=== PATIENT | female | born 1975 | race Caucasian/White ===

== ENCOUNTER → 2017-02-15 | Outpatient (CLI) | payer OTHER | END | disposition home or self-care (01) | LOC: MW.CHFP 14:06 | PROVIDERS: ATTEND Student in an Organized Health Care Education/Training Program | DX: D64.9 Anemia, unspecified (principal) | CPT/HCPCS: 36415; 85027 ==

== ENCOUNTER 2020-03-31 12:01 | Observation (INO) | payer OTHER ==
[2020-03-31] MEDS ORDERED: Ketorolac 30 MG/ML SDV IVPUSH ONE (12:06)
[2020-03-31] MEDS ORDERED: Ondansetron 4 MG/2 ML SDV IVPUSH ONE (12:09)
--- NOTE | 2020-03-31 12:12 | EDM.PDOC ---
ED HPI GENERAL MEDICAL PROBLEM - General Chief Complaint: Abdominal Pain Stated Complaint: PAIN ON SIDE Time Seen by Provider: 03/31/20 12:05 Source of Information: Reports: Patient History Limitations: Reports: No Limitations - History of Present Illness INITIAL COMMENTS - FREE TEXT/NARRATIVE: 45-year-old female presents with right upper quadrant abdominal pain nausea for the last 2 hours. She has no gallbladder present patient has no uterus present Duration: Hour(s): Location: Reports: Abdomen Quality: Reports: Ache Severity: Moderate Improves with: Reports: None Worsens with: Reports: None Associated Symptoms: Reports: No Other Symptoms RUQ Pain Score (Numeric/FACES): 10 - Related Data Allergies Allergy/AdvReac Type Severity Reaction Status Date / Time No Known Allergies Allergy Verified 03/31/20 12:02 Home Meds: Home Meds . 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: Reports: Dysfunctional Uterine Bleeding Musculoskeletal History: Reports: Arthritis Neurological History: Reports: None Psychiatric History: Reports: None Endocrine/Metabolic History: Reports: None Other Endocrine/Metabolic History: states has questionable hyperactive thyroid, states is going to be retested Hematologic History: Reports: None Immunologic History: Reports: None Oncologic (Cancer) History: Reports: None Dermatologic History: Reports: None - Infectious Disease History Infectious Disease History: Reports: Chicken Pox - Past Surgical History Head Surgeries/Procedures: Reports: None HEENT Surgical History: Reports: None Cardiovascular Surgical History: Reports: None Respiratory Surgical History: Reports: None Female Surgical History: Reports: Hysterectomy, Tubal Ligation Endocrine Surgical History: Reports: None Neurological Surgical History: Reports: None Musculoskeletal Surgical History: Reports: None Oncologic Surgical History: Reports: None Dermatological Surgical History: Reports: None Social & Family History - Family History Family Medical History: Noncontributory - Tobacco Use Smoking Status *Q: Former Smoker Used Tobacco, but Quit: Yes Month/Year Tobacco Last Used: 2013 - Caffeine Use Caffeine Use: Reports: Tea - Recreational Drug Use Recreational Drug Use: No ED ROS GENERAL - Review of Systems Review Of Systems: See Below Constitutional: Reports: No Symptoms HEENT: Reports: No Symptoms Respiratory: Reports: No Symptoms Cardiovascular: Reports: No Symptoms Endocrine: Reports: No Symptoms GI/Abdominal: Reports: Abdominal Pain : Reports: No Symptoms Musculoskeletal: Reports: No Symptoms Skin: Reports: No Symptoms Neurological: Reports: No Symptoms Psychiatric: Reports: No Symptoms Hematologic/Lymphatic: Reports: No Symptoms Immunologic: Reports: No Symptoms ED EXAM, GI/ABD - Physical Exam Exam: See Below Exam Limited By: No Limitations General Appearance: Alert, WD/WN, Moderate Distress Eyes: Bilateral: Normal Appearance Ears: Normal External Exam, Normal Canal, Hearing Grossly Normal, Normal TMs Nose: Normal Inspection, Normal Mucosa, No Blood Throat/Mouth: Normal Inspection, Normal Lips, Normal Teeth, Normal Gums, Normal Oropharynx, Normal Voice, No Airway Compromise Head: Atraumatic, Normocephalic Neck: Normal Inspection, Supple, Non-Tender Respiratory/Chest: No Respiratory Distress, Lungs Clear, Normal Breath Sounds, No Accessory Muscle Use, Chest Non-Tender Cardiovascular: Normal Peripheral Pulses, Regular Rate, Rhythm, No Edema, No JVD , No Murmur GI/Abdominal Exam: Normal Bowel Sounds, Soft, No Organomegaly, No Distention, No Abnormal Bruit, No Mass, Pelvis Stable Rectal (Female) Exam: Normal Exam, Normal Rectal Tone Back Exam: Normal Inspection, Full Range of Motion Extremities: Normal Inspection, Normal Range of Motion, No Pedal Edema, Normal Capillary Refill Neurological: Alert, Oriented, CN II-XII Intact, Normal Cognition, Normal Reflexes, No Motor/Sensory Deficits Psychiatric: Normal Affect, Normal Mood Skin Exam: Warm, Dry, Intact, Normal Color, No Rash Lymphatic: No Adenopathy Course - Vital Signs Text/Narrative:: Is a 45-year-old female who presents with severe abdominal pain. Patient is labs suggested patient has pancreatitis with high pace of 11,000. Patient CT scan shows enteritis picture. Patient's pain has not improved from a 10 down to a 3-4. I have discussed case with hospitalist traffic personnel supervisor and patient will be admitted to observation with telemetry. Received additional pain medicine and IV fluids in the emergency room Last Recorded V/S: Last Vital Signs Temp 96.1 F L 03/31/20 12:02 Pulse 74 03/31/20 13:49 Resp 18 03/31/20 13:49 BP 118/71 03/31/20 13:49 Pulse Ox 94 L 03/31/20 13:49 - Orders/Labs/Meds Labs: Laboratory Tests 03/31/20 03/31/20 Range/Units 12:04 12:04 WBC 13.25 H (4.0-11.0) K/uL RBC 5.36 (4.30-5.90) M/uL Hgb 16.0 (12.0-16.0) g/dL Hct 47.0 H (36.0-46.0) % MCV 87.7 (80.0-98.0) fL MCH 29.9 (27.0-32.0) pg MCHC 34.0 (31.0-37.0) g/dL RDW Std Deviation 43.2 (28.0-62.0) fl RDW Coeff of Karen 14 (11.0-15.0) % Plt Count 312 (150-400) K/uL MPV 9.00 (7.40-12.00) fL Neut % (Auto) 77.1 (48.0-80.0) % Lymph % (Auto) 15.2 L (16.0-40.0) % [place] % (Auto) 6.5 (0.0-15.0) % Eos % (Auto) 1.0 (0.0-7.0) % Baso % (Auto) 0.2 (0.0-1.5) % Neut # (Auto) 10.2 H (1.4-5.7) K/uL Lymph # (Auto) 2.0 (0.6-2.4) K/uL [place] # (Auto) 0.9 H (0.0-0.8) K/uL Eos # (Auto) 0.1 (0.0-0.7) K/uL Baso # (Auto) 0.0 (0.0-0.1) K/uL Nucleated RBC % 0.0 /100WBC Nucleated RBCs # 0 K/uL Sodium 139 (136-145) mmol/L Potassium 4.5 (3.5-5.1) mmol/L Chloride 105 (98-107) mmol/L Carbon Dioxide 26.5 (21.0-32.0) mmol/L BUN 12 (7.0-18.0) mg/dL Creatinine 0.9 (0.6-1.0) mg/dL Est Cr Clr Drug Dosing 63.92 mL/min Estimated GFR (MDRD) > 60.0 ml/min Glucose 116 H (74-106) mg/dL Calcium 8.7 (8.5-10.1) mg/dL Total Bilirubin 0.5 (0.2-1.0) mg/dL AST 39 H (15-37) IU/L ALT 35 (14-63) IU/L Alkaline Phosphatase 101 (46-116) U/L Total Protein 7.8 (6.4-8.2) g/dL Albumin 3.6 (3.4-5.0) g/dL Globulin 4.2 H (2.6-4.0) g/dL Albumin/Globulin Ratio 0.9 (0.9-1.6) Lipase 47783 H (73-393) U/L Meds: Medications Discontinued Medications Generic Name Dose Route Start Last Admin Trade Name Freq PRN Reason Stop Dose Admin Iopamidol 100 ml 03/31/20 13:42 03/31/20 13:43 Isovue Multipack-370 (76%) IVPUSH 03/31/20 13:43 100 ml ONETIME STA Administration Ketorolac Tromethamine 30 mg 03/31/20 12:06 03/31/20 12:14 Toradol IVPUSH 03/31/20 12:07 30 mg ONETIME ONE Administration Morphine Sulfate 4 mg 03/31/20 12:48 03/31/20 12:54 Morphine IVPUSH 03/31/20 12:49 4 mg ONETIME ONE Administration Ondansetron HCl 4 mg 03/31/20 12:09 03/31/20 12:14 Zofran IVPUSH 03/31/20 12:10 4 mg ONETIME ONE Administration Departure - Departure Time of Disposition: 14:21 Disposition: Home, Self-Care 01 Condition: Good Clinical Impression: Pancreatitis - Discharge Information Referrals: Nanci Rios JACKET PREPARER [Primary Care Provider] - Forms: ED Department Discharge Sepsis Event Note - Evaluation Sepsis Screening Result: No Definite Risk - Focused Exam Vital Signs: Vital Signs Temp Pulse Resp BP Pulse Ox 03/31/20 13:49 74 18 118/71 94 L 03/31/20 12:55 73 18 109/52 L 98 03/31/20 12:02 96.1 F L 84 19 108/69 96 Date Exam was Performed: 03/31/20 Time Exam was Performed: 14:20
[2020-03-31 12:32] LABS: BLOOD UREA NITROGEN,BUN 12 mg/dL (7.0-18.0); CARBON DIOXIDE,CO2 26.5 mmol/L (21.0-32.0); CHLORIDE,CL 105 mmol/L (98-107); GLUCOSE RANDOM 116 mg/dL (74-106); POTASSIUM,K 4.5 mmol/L (3.5-5.1); SODIUM,NA 139 mmol/L (136-145)
[2020-03-31 12:46] LABS: LIPASE 11700 U/L (73-393)
[2020-03-31] MEDS ORDERED: Morphine 4 MG/ML Syringe IVPUSH ONE (12:48)
[2020-03-31] MEDS ORDERED: Iopamidol 755 Mg/ML 100 ML Bottle IVPUSH STA (13:40)
[2020-03-31] MEDS ORDERED: Iopamidol 755 MG/ML 200 ML Multipack Bottle IVPUSH STA (13:42)
--- NOTE | 2020-03-31 14:09 | CT ---
INDICATION: Abdominal pain. TECHNIQUE: CT abdomen acquired with IV contrast. 100 mL IV Isovue 370. COMPARISON: CT of the abdomen and pelvis 08/13/2016. FINDINGS: Lower chest: Unremarkable. Liver: Hepatomegaly and hepatic steatosis. No focal hepatic lesion. Gallbladder and bile ducts: Status coat post cholecystectomy. Prominence of the common duct is likely related to the postcholecystectomy state. No intrahepatic biliary ductal dilatation. Spleen: Unremarkable. Pancreas: Unremarkable. Adrenal glands: Unremarkable. Kidneys: No kidney or ureteral stones and no hydronephrosis. No renal lesions. GI tract: There is a small amount fluid within the distal esophagus. Correlate for history reflux. The visualized small and large bowel are normal in caliber. There is mild wall thickening and mild mesenteric edema of small bowel loops in the left mid abdomen. Appendix not included within the field of view. Vascular structures: No sign of aneurysm. Lymph nodes: No abdominal lymphadenopathy. Miscellaneous: No ascites. No free air. Bones: No acute abnormality. No suspicious bone lesion. Degenerative changes affect the lower thoracic spine. There is grade 1 retrolisthesis of L5 on S1. IMPRESSION: 1. Mild wall thickening and mild mesenteric edema involving small bowel loops in the left mid abdomen. Findings are suggestive of enteritis. 2. A small amount of fluid is seen within the distal esophagus. Correlate for history/symptoms of gastroesophageal reflux. Please note that all CT scans at this facility use dose modulation, iterative reconstruction, and/or weight-based dosing when appropriate to reduce radiation dose to as low as reasonably achievable. Dictated by Jocelin Almendarez MD @ Mar 31 2020 2:06PM Signed by Dr. Jocelin Almendarez @ Mar 31 2020 2:06PM
--- NOTE | 2020-03-31 15:27 | PCM.HP.2 ---
H&P History of Present Illness - General Date of Service: 03/31/20 Admit Problem/Dx: Admission Diagnosis/Problem Admission Diagnosis/Problem Pancreatitis - History of Present Illness Initial Comments - Free Text/Narative: Patient Is a 45-year-old female PMH of cholecystectomy, gastritis, GERD who presents with severe abdominal pain, N/V. Patient states that her appetite has been "off" forp ast several days but today after she had a heavy breakfast prepared by her son on mothers day she started have N/V ab=nd severe abdominal pain.. Denied diarrhea. h/o endoscopy in past which showed hiatal hernia and gastritis, colonoscopy in past showed benign polyps which were removed. Patient labs suggested patient has pancreatitis with high pace of 11,000. Patient CT scan shows enteritis. Patient received IV fluids and Toradol for pain. Patient is being admitted for further evaluation. Duration of Symptoms: Reports: Hour(s): Severity: Severe Improves with: Reports: Medication Worsens with: Reports: Eating RUQ Pain Score (Numeric/FACES): 10 - Related Data Allergies/Adverse Reactions: Allergies Allergy/AdvReac Type Severity Reaction Status Date / Time No Known Allergies Allergy Verified 03/31/20 16:37 Home Medications: Home Meds . 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: Dysfunctional Uterine Bleeding Musculoskeletal History: Reports: Arthritis Neurological History: Reports: None Psychiatric History: Reports: None Endocrine/Metabolic History: Reports: None Other Endocrine/Metabolic History: states has questionable hyperactive thyroid, states is going to be retested Hematologic History: Reports: None Immunologic History: Reports: None Oncologic (Cancer) History: Reports: None Dermatologic History: Reports: None - Infectious Disease History Infectious Disease History: Reports: Chicken Pox - Past Surgical History Head Surgeries/Procedures: Reports: None HEENT Surgical History: Reports: None Cardiovascular Surgical History: Reports: None Respiratory Surgical History: Reports: None Female Surgical History: Reports: Hysterectomy, Tubal Ligation Endocrine Surgical History: Reports: None Neurological Surgical History: Reports: None Musculoskeletal Surgical History: Reports: None Oncologic Surgical History: Reports: None Dermatological Surgical History: Reports: None Social & Family History - Family History Family Medical History: Noncontributory - Tobacco Use Smoking Status *Q: Former Smoker Used Tobacco, but Quit: Yes Month/Year Tobacco Last Used: 2013 - Caffeine Use Caffeine Use: Reports: Tea - Recreational Drug Use Recreational Drug Use: No H&P Review of Systems - Review of Systems: Review Of Systems: See Below General: Denies: Fever, Chills, Malaise HEENT: Denies: Dysphasia, Ear Pain Pulmonary: Denies: Shortness of Breath, Wheezing Cardiovascular: Reports: Chest Pain. Denies: Palpitations, Dyspnea on Exertion Gastrointestinal: Reports: Abdominal Pain, Anorexia, Constipation, Decreased Appetite, Flatus, Nausea, Vomiting. Denies: Bloody Stool, Diarrhea, Difficulty Swallowing, Melena Genitourinary: Reports: Burning, Flank Pain. Denies: Dysuria, Frequency, Urgency Musculoskeletal: Denies: Neck Pain, Shoulder Pain Skin: Denies: Cyanosis, Jaundice, Mottled, Pallor Psychiatric: Denies: Confusion, Depression, Mood Lability Neurological: Denies: Confusion, Dizziness, Headache Hematologic/Lymphatic: Denies: Anemia, Easy Bleeding Exam - Vital Signs Vital Signs: Last Vital Signs Temp 35.6 C L 03/31/20 12:02 Pulse 68 03/31/20 15:07 Resp 18 03/31/20 15:07 BP 139/82 03/31/20 15:07 Pulse Ox 98 03/31/20 15:07 Weight: 106.594 kg - Exam General: Alert, Oriented, Cooperative, Mild Distress HEENT: Conjunctiva Clear Neck: Supple, Trachea Midline Lungs: Clear to Auscultation, Normal Respiratory Effort Cardiovascular: Regular Rate, Regular Rhythm GI/Abdominal Exam: Soft, Tender Back Exam: Normal Inspection, Full Range of Motion, CVA Tenderness (L) Extremities: Normal Inspection, Normal Range of Motion - Patient Data Lab Results Last 24 hrs: Laboratory Results - last 24 hr 03/31/20 03/31/20 Range/Units 12:04 12:04 WBC 13.25 H (4.0-11.0) K/uL RBC 5.36 (4.30-5.90) M/uL Hgb 16.0 (12.0-16.0) g/dL Hct 47.0 H (36.0-46.0) % MCV 87.7 (80.0-98.0) fL MCH 29.9 (27.0-32.0) pg MCHC 34.0 (31.0-37.0) g/dL RDW Std Deviation 43.2 (28.0-62.0) fl RDW Coeff of Karen 14 (11.0-15.0) % Plt Count 312 (150-400) K/uL MPV 9.00 (7.40-12.00) fL Neut % (Auto) 77.1 (48.0-80.0) % Lymph % (Auto) 15.2 L (16.0-40.0) % [place] % (Auto) 6.5 (0.0-15.0) % Eos % (Auto) 1.0 (0.0-7.0) % Baso % (Auto) 0.2 (0.0-1.5) % Neut # (Auto) 10.2 H (1.4-5.7) K/uL Lymph # (Auto) 2.0 (0.6-2.4) K/uL [place] # (Auto) 0.9 H (0.0-0.8) K/uL Eos # (Auto) 0.1 (0.0-0.7) K/uL Baso # (Auto) 0.0 (0.0-0.1) K/uL Nucleated RBC % 0.0 /100WBC Nucleated RBCs # 0 K/uL Sodium 139 (136-145) mmol/L Potassium 4.5 (3.5-5.1) mmol/L Chloride 105 (98-107) mmol/L Carbon Dioxide 26.5 (21.0-32.0) mmol/L BUN 12 (7.0-18.0) mg/dL Creatinine 0.9 (0.6-1.0) mg/dL Est Cr Clr Drug Dosing 63.92 mL/min Estimated GFR (MDRD) > 60.0 ml/min Glucose 116 H (74-106) mg/dL Calcium 8.7 (8.5-10.1) mg/dL Total Bilirubin 0.5 (0.2-1.0) mg/dL AST 39 H (15-37) IU/L ALT 35 (14-63) IU/L Alkaline Phosphatase 101 (46-116) U/L Total Protein 7.8 (6.4-8.2) g/dL Albumin 3.6 (3.4-5.0) g/dL Globulin 4.2 H (2.6-4.0) g/dL Albumin/Globulin Ratio 0.9 (0.9-1.6) Lipase 67105 H (73-393) U/L Result Diagrams: 03/31/20 12:04 03/31/20 12:04 Sepsis Event Note - Evaluation Sepsis Screening Result: No Definite Risk - Focused Exam Vital Signs: Vital Signs Temp Pulse Resp BP Pulse Ox 03/31/20 15:07 68 18 139/82 98 03/31/20 13:49 74 18 118/71 94 L 03/31/20 12:55 73 18 109/52 L 98 03/31/20 12:02 35.6 C L 84 19 108/69 96 Date Exam was Performed: 03/31/20 Time Exam was Performed: 18:50 - Problem List (1) GERD (gastroesophageal reflux disease) SNOMED Code(s): 639047859 ICD Code: K21.9 - GASTRO-ESOPHAGEAL REFLUX DISEASE WITHOUT ESOPHAGITIS Status: Acute Current Visit: Yes (2) Pancreatitis SNOMED Code(s): 79917656 ICD Code: K85.90 - ACUTE PANCREATITIS WITHOUT NECROSIS OR INFECTION, UNSP Status: Acute Current Visit: Yes Problem List Initiated/Reviewed/Updated: Yes Orders Last 24hrs: Active Orders 24 hr Category Date Time Status Patient Status [ADT] Stat ADT 03/31/20 14:27 Active Ambulate [RC] ASDIRECTED Care 03/31/20 15:22 Active Antiembolic Devices [RC] PER UNIT ROUTINE Care 03/31/20 15:24 Active Oxygen Therapy [RC] PRN Care 03/31/20 15:22 Active Pulse Oximetry [RC] PRN Care 03/31/20 15:23 Active Telemetry Monitoring [Cardiac Monitoring] [RC] Q8H Care 03/31/20 14:49 Active VTE/DVT Education [RC] PER UNIT ROUTINE Care 03/31/20 15:22 Active Vital Signs [RC] Q4H Care 03/31/20 15:22 Active Nothing per Oral Now Diet [DIET] Diet 03/31/20 Dinner Active BMP [BASIC METABOLIC PANEL,BMP] [CHEM] AM Lab 04/01/20 05:11 Ordered CBC WITH AUTO DIFF [HEME] AM Lab 04/01/20 05:11 Ordered GLYCOSYLATED HEMOGLOBIN,HGBA1C [CHEM] Routine Lab 03/31/20 15:26 Ordered LIPID PANEL [CHEM] AM Lab 04/01/20 05:11 Ordered MAGNESIUM [CHEM] AM Lab 04/01/20 05:11 Ordered PHOSPHORUS [CHEM] AM Lab 04/01/20 05:11 Ordered TSH [CHEM] Routine Lab 03/31/20 15:26 Ordered UA W/MICROSCOPIC [URIN] Routine Lab 03/31/20 15:27 Ordered Ketorolac [Toradol] Med 03/31/20 15:22 Ordered 30 mg IV Q8H PRN Lactated Ringers [Ringers, Lactated] 1,000 ml Med 03/31/20 15:30 Ordered IV ASDIRECTED Ondansetron [Zofran] Med 03/31/20 15:24 Ordered 4 mg IVPUSH Q4H PRN Pantoprazole [ProTONIX IV] 40 mg Med 03/31/20 15:30 Ordered Sodium Chloride 0.9% [Normal Saline] 10 ml IV Q24H Sequential Compression Device [OM.PC] Per Unit Routine Oth 03/31/20 15:23 Ordered Resuscitation Status Routine Resus Stat 03/31/20 15:22 Ordered Medication Orders Lactated Ringer's (Ringers, Lactated) 1,000 mls @ 125 mls/hr IV ASDIRECTED ALEXIS Pantoprazole Sodium 40 mg/ (Sodium Chloride) 10 mls @ 300 mls/hr IV Q24H ALEXIS Ketorolac Tromethamine (Toradol) 30 mg IV Q8H PRN PRN Reason: Pain (moderate 4-6) Ondansetron HCl (Zofran) 4 mg IVPUSH Q4H PRN PRN Reason: Nausea/Vomiting Assessment/Plan Comment:: 45 y/o F admitted for N/V abdominal pain Elevated lipase, CT scan shows enteritis No fever, chills or diarrhea, doubt bacterial infection at this point Non smoker, no h/o alcohol abuse, LFTs normal, no stone/blockage seen on CT scan Will check Lipid panel Will start IV fluids for hydration NPO for now Monitor and replete electrolytes Toradol for pain Zofran for N/V IV PPI daily Trend Lipase daily SCD for dvt ppx Full code
[2020-03-31 16:15] LABS: HEMOGLOBIN A1C 5.2 % (4.5-6.2)
[2020-03-31] MEDS: Lactated Ringers 1,000 ML IV SCH ×2 (16:17→23:38)
[2020-03-31] MEDS: Ketorolac 30 MG/ML SDV IV PRN (16:24)
[2020-03-31] MEDS: Pantoprazole 40 MG in Sodium Chloride 0.9% 10 ML IV SCH (16:26)
[2020-03-31] MEDS: Ondansetron 4 MG/2 ML SDV IVPUSH PRN (16:27)
[2020-04-01] MEDS: Ketorolac 30 MG/ML SDV IV PRN ×2 (00:29→08:32)
[2020-04-01] MEDS: Ondansetron 4 MG/2 ML SDV IVPUSH PRN ×3 (00:40→14:45)
[2020-04-01] MEDS: Lactated Ringers 1,000 ML IV SCH (06:20)
[2020-04-01 06:33] LABS: BLOOD UREA NITROGEN,BUN 15 mg/dL (7.0-18.0); CARBON DIOXIDE,CO2 28.2 mmol/L (21.0-32.0); CHLORIDE,CL 109 mmol/L (98-107); GLUCOSE RANDOM 97 mg/dL (74-106); LIPASE 372 U/L (73-393); POTASSIUM,K 3.8 mmol/L (3.5-5.1); SODIUM,NA 142 mmol/L (136-145)
[2020-04-01] MEDS ORDERED: Magnesium Sulfate (4.06 MEQ/ML) 1 GM/2 ML SDV IV ONE (07:10)
[2020-04-01] MEDS ORDERED: Magnesium Sulfate/Water 2 GM in Premix Bag 1 BAG IV ONE (07:30)
--- NOTE | 2020-04-01 10:47 | PCM.PN ---
- General Info Date of Service: 04/01/20 Subjective Update: Patient reports feeling a little better today, wants to eat. RUQ, nausea/ vomiting improving. Thinks she may be able to go home today. Denies black/ bloody stool or hematemesis. - Review of Systems General: Reports: No Symptoms HEENT: Reports: No Symptoms Pulmonary: Reports: No Symptoms Cardiovascular: Reports: No Symptoms Gastrointestinal: Reports: No Symptoms Genitourinary: Reports: No Symptoms Musculoskeletal: Reports: No Symptoms Skin: Reports: No Symptoms Neurological: Reports: No Symptoms Psychiatric: Reports: No Symptoms - Patient Data Vitals - Most Recent: Last Vital Signs Temp 97.4 F 04/01/20 07:59 Pulse 70 04/01/20 07:59 Resp 14 04/01/20 07:59 BP 131/68 04/01/20 07:59 Pulse Ox 96 04/01/20 07:59 Weight - Most Recent: 106.594 kg I&O - Last 24 Hours: Intake & Output 03/31/20 04/01/20 04/01/20 22:59 06:59 14:59 Intake Total 1489 Output Total 300 Balance 1189 Lab Results Last 24 Hours: Laboratory Results - last 24 hr 03/31/20 03/31/20 03/31/20 Range/Units 12:04 12:04 12:04 WBC 13.25 H (4.0-11.0) K/uL RBC 5.36 (4.30-5.90) M/uL Hgb 16.0 (12.0-16.0) g/dL Hct 47.0 H (36.0-46.0) % MCV 87.7 (80.0-98.0) fL MCH 29.9 (27.0-32.0) pg MCHC 34.0 (31.0-37.0) g/dL RDW Std Deviation 43.2 (28.0-62.0) fl RDW Coeff of Karen 14 (11.0-15.0) % Plt Count 312 (150-400) K/uL MPV 9.00 (7.40-12.00) fL Neut % (Auto) 77.1 (48.0-80.0) % Lymph % (Auto) 15.2 L (16.0-40.0) % [place] % (Auto) 6.5 (0.0-15.0) % Eos % (Auto) 1.0 (0.0-7.0) % Baso % (Auto) 0.2 (0.0-1.5) % Neut # (Auto) 10.2 H (1.4-5.7) K/uL Lymph # (Auto) 2.0 (0.6-2.4) K/uL [place] # (Auto) 0.9 H (0.0-0.8) K/uL Eos # (Auto) 0.1 (0.0-0.7) K/uL Baso # (Auto) 0.0 (0.0-0.1) K/uL Nucleated RBC % 0.0 /100WBC Nucleated RBCs # 0 K/uL Sodium 139 (136-145) mmol/L Potassium 4.5 (3.5-5.1) mmol/L Chloride 105 (98-107) mmol/L Carbon Dioxide 26.5 (21.0-32.0) mmol/L BUN 12 (7.0-18.0) mg/dL Creatinine 0.9 (0.6-1.0) mg/dL Est Cr Clr Drug Dosing 63.92 mL/min Estimated GFR (MDRD) > 60.0 ml/min Glucose 116 H (74-106) mg/dL Hemoglobin A1c (4.5-6.2) % Calcium 8.7 (8.5-10.1) mg/dL Phosphorus (2.6-4.7) mg/dL Magnesium (1.8-2.4) mg/dL Total Bilirubin 0.5 (0.2-1.0) mg/dL AST 39 H (15-37) IU/L ALT 35 (14-63) IU/L Alkaline Phosphatase 101 (46-116) U/L Total Protein 7.8 (6.4-8.2) g/dL Albumin 3.6 (3.4-5.0) g/dL Globulin 4.2 H (2.6-4.0) g/dL Albumin/Globulin Ratio 0.9 (0.9-1.6) Triglycerides (0-200) mg/dL Cholesterol (50-200) mg/dL LDL Cholesterol, Calc (60-180) mg/dL VLDL Cholesterol (5-55) mg/dL HDL Cholesterol (40-60) mg/dL Cholesterol/HDL Ratio (3.3-6.0) Lipase 27522 H (73-393) U/L TSH 3rd Generation 0.52 (0.36-3.74) uIU/mL Urine Color Urine Appearance Urine pH (5.0-8.0) Ur Specific [place] (1.001-1.035) Urine Protein (NEGATIVE) mg/dL Urine Glucose (UA) (NEGATIVE) mg/dL Urine Ketones (NEGATIVE) mg/dL Urine Occult Blood (NEGATIVE) Urine Nitrite (NEGATIVE) Urine Bilirubin (NEGATIVE) Urine Urobilinogen (<2.0) EU/dL Ur Leukocyte Esterase (NEGATIVE) Urine RBC (0-2/HPF) Urine WBC (0-5/HPF) Ur Epithelial Cells (NONE-FEW) Urine Bacteria (NEGATIVE) 03/31/20 03/31/20 04/01/20 Range/Units 12:04 15:36 05:43 WBC 8.74 (4.0-11.0) K/uL RBC 3.97 L (4.30-5.90) M/uL Hgb 11.6 L (12.0-16.0) g/dL Hct 35.3 L (36.0-46.0) % MCV 88.9 (80.0-98.0) fL MCH 29.2 (27.0-32.0) pg MCHC 32.9 (31.0-37.0) g/dL RDW Std Deviation 44.7 (28.0-62.0) fl RDW Coeff of Karen 14 (11.0-15.0) % Plt Count 257 (150-400) K/uL MPV 8.70 (7.40-12.00) fL Neut % (Auto) 56.1 (48.0-80.0) % Lymph % (Auto) 30.2 (16.0-40.0) % [place] % (Auto) 8.8 (0.0-15.0) % Eos % (Auto) 4.7 (0.0-7.0) % Baso % (Auto) 0.2 (0.0-1.5) % Neut # (Auto) 4.9 (1.4-5.7) K/uL Lymph # (Auto) 2.6 H (0.6-2.4) K/uL [place] # (Auto) 0.8 (0.0-0.8) K/uL Eos # (Auto) 0.4 (0.0-0.7) K/uL Baso # (Auto) 0.0 (0.0-0.1) K/uL Nucleated RBC % 0.0 /100WBC Nucleated RBCs # 0 K/uL Sodium (136-145) mmol/L Potassium (3.5-5.1) mmol/L Chloride (98-107) mmol/L Carbon Dioxide (21.0-32.0) mmol/L BUN (7.0-18.0) mg/dL Creatinine (0.6-1.0) mg/dL Est Cr Clr Drug Dosing mL/min Estimated GFR (MDRD) ml/min Glucose (74-106) mg/dL Hemoglobin A1c 5.2 (4.5-6.2) % Calcium (8.5-10.1) mg/dL Phosphorus (2.6-4.7) mg/dL Magnesium (1.8-2.4) mg/dL Total Bilirubin (0.2-1.0) mg/dL AST (15-37) IU/L ALT (14-63) IU/L Alkaline Phosphatase (46-116) U/L Total Protein (6.4-8.2) g/dL Albumin (3.4-5.0) g/dL Globulin (2.6-4.0) g/dL Albumin/Globulin Ratio (0.9-1.6) Triglycerides (0-200) mg/dL Cholesterol (50-200) mg/dL LDL Cholesterol, Calc (60-180) mg/dL VLDL Cholesterol (5-55) mg/dL HDL Cholesterol (40-60) mg/dL Cholesterol/HDL Ratio (3.3-6.0) Lipase (73-393) U/L TSH 3rd Generation (0.36-3.74) uIU/mL Urine Color YELLOW Urine Appearance CLEAR Urine pH 5.5 (5.0-8.0) Ur Specific [place] 1.015 (1.001-1.035) Urine Protein NEGATIVE (NEGATIVE) mg/dL Urine Glucose (UA) NEGATIVE (NEGATIVE) mg/dL Urine Ketones NEGATIVE (NEGATIVE) mg/dL Urine Occult Blood NEGATIVE (NEGATIVE) Urine Nitrite NEGATIVE (NEGATIVE) Urine Bilirubin NEGATIVE (NEGATIVE) Urine Urobilinogen 0.2 (<2.0) EU/dL Ur Leukocyte Esterase NEGATIVE (NEGATIVE) Urine RBC NONE SEEN (0-2/HPF) Urine WBC NONE SEEN (0-5/HPF) Ur Epithelial Cells RARE (NONE-FEW) Urine Bacteria NOT SEEN (NEGATIVE) 04/01/20 04/01/20 Range/Units 05:43 05:43 WBC (4.0-11.0) K/uL RBC (4.30-5.90) M/uL Hgb (12.0-16.0) g/dL Hct (36.0-46.0) % MCV (80.0-98.0) fL MCH (27.0-32.0) pg MCHC (31.0-37.0) g/dL RDW Std Deviation (28.0-62.0) fl RDW Coeff of Karen (11.0-15.0) % Plt Count (150-400) K/uL MPV (7.40-12.00) fL Neut % (Auto) (48.0-80.0) % Lymph % (Auto) (16.0-40.0) % [place] % (Auto) (0.0-15.0) % Eos % (Auto) (0.0-7.0) % Baso % (Auto) (0.0-1.5) % Neut # (Auto) (1.4-5.7) K/uL Lymph # (Auto) (0.6-2.4) K/uL [place] # (Auto) (0.0-0.8) K/uL Eos # (Auto) (0.0-0.7) K/uL Baso # (Auto) (0.0-0.1) K/uL Nucleated RBC % /100WBC Nucleated RBCs # K/uL Sodium 142 (136-145) mmol/L Potassium 3.8 (3.5-5.1) mmol/L Chloride 109 H (98-107) mmol/L Carbon Dioxide 28.2 (21.0-32.0) mmol/L BUN 15 (7.0-18.0) mg/dL Creatinine 0.9 (0.6-1.0) mg/dL Est Cr Clr Drug Dosing 66.73 mL/min Estimated GFR (MDRD) > 60.0 ml/min Glucose 97 (74-106) mg/dL Hemoglobin A1c (4.5-6.2) % Calcium 7.9 L (8.5-10.1) mg/dL Phosphorus 3.0 (2.6-4.7) mg/dL Magnesium 1.6 L (1.8-2.4) mg/dL Total Bilirubin 0.6 (0.2-1.0) mg/dL AST 25 (15-37) IU/L ALT 51 (14-63) IU/L Alkaline Phosphatase 75 (46-116) U/L Total Protein (6.4-8.2) g/dL Albumin (3.4-5.0) g/dL Globulin (2.6-4.0) g/dL Albumin/Globulin Ratio (0.9-1.6) Triglycerides 116 (0-200) mg/dL Cholesterol 134 (50-200) mg/dL LDL Cholesterol, Calc 77 (60-180) mg/dL VLDL Cholesterol 23 (5-55) mg/dL HDL Cholesterol 34 L (40-60) mg/dL Cholesterol/HDL Ratio 3.9 (3.3-6.0) Lipase 372 (73-393) U/L TSH 3rd Generation (0.36-3.74) uIU/mL Urine Color Urine Appearance Urine pH (5.0-8.0) Ur Specific [place] (1.001-1.035) Urine Protein (NEGATIVE) mg/dL Urine Glucose (UA) (NEGATIVE) mg/dL Urine Ketones (NEGATIVE) mg/dL Urine Occult Blood (NEGATIVE) Urine Nitrite (NEGATIVE) Urine Bilirubin (NEGATIVE) Urine Urobilinogen (<2.0) EU/dL Ur Leukocyte Esterase (NEGATIVE) Urine RBC (0-2/HPF) Urine WBC (0-5/HPF) Ur Epithelial Cells (NONE-FEW) Urine Bacteria (NEGATIVE) Med Orders - Current: Current Medications Lactated Ringer's (Ringers, Lactated) 1,000 mls @ 125 mls/hr IV ASDIRECTED [facility] Last Admin: 04/01/20 06:20 Dose: 125 mls/hr Pantoprazole Sodium 40 mg/ (Sodium Chloride) 10 mls @ 300 mls/hr IV Q24H [facility] Last Admin: 03/31/20 16:26 Dose: 300 mls/hr Ondansetron HCl (Zofran) 4 mg IVPUSH Q4H PRN PRN Reason: Nausea/Vomiting Last Admin: 04/01/20 08:32 Dose: 4 mg Discontinued Medications Magnesium Sulfate 2 gm/ Premix 50 mls @ 25 mls/hr IV ONETIME ONE Stop: 04/01/20 09:29 Last Admin: 04/01/20 07:51 Dose: 25 mls/hr Iopamidol (Isovue Multipack-370 (76%)) 100 ml IVPUSH ONETIME STA Stop: 03/31/20 13:43 Last Admin: 03/31/20 13:43 Dose: 100 ml Ketorolac Tromethamine (Toradol) 30 mg IVPUSH ONETIME ONE Stop: 03/31/20 12:07 Last Admin: 03/31/20 12:14 Dose: 30 mg Ketorolac Tromethamine (Toradol) 30 mg IV Q8H PRN PRN Reason: Pain (moderate 4-6) Last Admin: 04/01/20 08:32 Dose: 30 mg Morphine Sulfate (Morphine) 4 mg IVPUSH ONETIME ONE Stop: 03/31/20 12:49 Last Admin: 03/31/20 12:54 Dose: 4 mg Ondansetron HCl (Zofran) 4 mg IVPUSH ONETIME ONE Stop: 03/31/20 12:10 Last Admin: 03/31/20 12:14 Dose: 4 mg - Exam General: Alert, Oriented, Cooperative Lungs: Clear to Auscultation, Normal Respiratory Effort Cardiovascular: Regular Rate, Regular Rhythm GI/Abdominal Exam: Normal Bowel Sounds, Soft, Non-Tender, No Distention Extremities: No Pedal Edema Skin: Warm, Dry Neurological: No New Focal Deficit Psy/Mental Status: Alert, Normal Affect, Normal Mood Sepsis Event Note - Evaluation Sepsis Screening Result: No Definite Risk - Focused Exam Vital Signs: Vital Signs Temp Pulse Resp BP Pulse Ox 04/01/20 07:59 97.4 F 70 14 131/68 96 04/01/20 04:42 98.1 F 70 16 113/54 L 96 03/31/20 23:05 98.5 F 76 16 126/65 96 Date Exam was Performed: 04/01/20 Time Exam was Performed: 10:41 - Problem List Review Problem List Initiated/Reviewed/Updated: Yes - My Orders Last 24 Hours: My Active Orders 04/01/20 10:14 Occult Blood Diagnostic GI [OCCULT BLOOD DIAGNOSTIC] [OP] Routine 04/01/20 Lunch Advance Diet Instructions [DIET] - Plan Plan:: 1. Acute pancreatitis- lipase resolved, symptoms improving. Will continue IVF and advance diet as tolerated. LFTs and lipid panel wnl. Will obtain US RUQ 2. Hypomagnesemia- replaced, recheck in AM 3. Drop in hemoglobin- could be dilutional due to IVF, patient denies black/ bloody stools or hematemesis, will obtain occult blood. May be able to go home today. Will reassess in the afternoon.
--- NOTE | 2020-04-01 11:35 | US ---
Limited abdominal ultrasound: Multiple real-time images of the upper right abdomen were obtained. Comparison: Prior CT abdomen and pelvis exam of 03/31/20. Visualized portions of the pancreas are within normal limits. Prior cholecystectomy is noted. Common bile duct mildly prominent at 1.0 cm which is most likely residual from prior cholecystectomy. Liver is slightly echogenic most likely due to mild fatty infiltration. Right kidney shows no hydronephrosis or mass. Right kidney has a length of 10.4 cm. Inferior vena cava is patent. Impression: 1. Slightly prominent size of the CBD most likely residual from prior cholecystectomy. 2. Probable mild fatty infiltration within the liver. 3. No additional abnormality is appreciated on right upper quadrant abdominal ultrasound. Diagnostic code #2 This report was dictated in MDT
[2020-04-01 13:12] VITALS: BP 102/61; PULSE 61
--- NOTE | 2020-04-01 13:35 | PCM.DCSUM1 ---
Discharge Summary - Hospital Course HPI Initial Comments: Admission Date: 03/31/20 Discharge Date: 04/01/20 Admission Diagnosis: 1. Elevated lipase 2. Nausea/vomiting with evidence of enteritis on CT Discharge Diagnosis: 1. Elevated lipase- resolved 2. RUQ pain with nausea/vomiting likely secondary to enteritis- resolved Procedures: None Consults: None Hospital Course: The patient is a 45 year old female who presented with right upper quadrant pain, nausea/vomiting for several days. She has a past medical history of cholecystectomy, gastritis, and GERD. In the ER, [place] [address], mild leukocytosis of 13, negative UA. CT abdomen revealed mild wall thickening and mild mesenteric edema consistent with enteritis. She was admitted to the medical floor for observation. She was kept NPO and started on IVF and pain control. By the next day, her lipase had resolved and symptoms had improved. Diet was advanced as tolerated. Lipd panel revealed no hypertriglyceridemia, US of the RUQ revealed changes consistent with cholecystectomy and she denied alcohol use. She did have a drop in hemoglobin from 16 to 11 possibly dilutional. Patient denied black/ bloody stools or hematemesis. She was unable to give us a stool sample for stool occult. By day of discharge patient was tolerating oral diet, symptoms had improved, and she was requesting discharge. Disposition: Home Discharge Condition: vitals stable, tolerating oral diet, ambulating without difficulty, symptom improvement Discharge Instructions: advance diet as tolerated, activity as tolerated, take medications as prescribed. Symptoms to report to physician include fever/chills , chest pain, shortness of breath, abdominal pain, erythema, drainage/discharge , black/bloody stools, or not improving as expected. Discharge Medications: Ondansetron [Zofran ODT] 4 mg PO Q6H PRN Follow-up: 1. PCP- Nanci Rios 04/09/20 - Discharge Data Discharge Date: 04/01/20 Discharge Disposition: Home, Self-Care 01 Condition: Good - Referral to Home Health Primary Care Physician: Nanci Rios NP - Patient Instructions Diet, Other: advance diet as tolerated Activity: As Tolerated Showering/Bathing: May Shower Notify Provider of: Fever, Increased Pain, Swelling and Redness, Drainage, Nausea and/or Vomiting Other/Special Instructions: Additional symptoms include chest pain, shortness of breath, abdominal pain. - Discharge Plan *PRESCRIPTION DRUG MONITORING PROGRAM REVIEWED*: No *COPY OF PRESCRIPTION DRUG MONITORING REPORT IN PATIENT TAWNY: No Prescriptions/Med Rec: Ondansetron [Zofran ODT] 4 mg PO Q6H PRN 30 Days #30 tab.dis PRN Reason: Nausea/Vomiting Home Medications: Home Meds Ondansetron [Zofran ODT] 4 mg PO Q6H PRN 30 Days #30 tab.dis 04/01/20 [Rx] Patient Handouts: Acute Pancreatitis, [id number], Pancreatitis Eating Plan Referrals: Nanci Rios NP [Primary Care Provider] - 04/09/20 3:00 pm (Arrive 15 minutes early with a photo ID and insurance card. If you are not early, they will not see you. ) - Discharge Summary/Plan Comment DC Time >30 min.: No - Patient Data Vitals - Most Recent: Last Vital Signs Temp 97.7 F 04/01/20 13:11 Pulse 61 04/01/20 13:11 Resp 15 04/01/20 13:11 BP 102/61 04/01/20 13:11 Pulse Ox 96 04/01/20 13:11 Weight - Most Recent: 106.594 kg I&O - Last 24 hours: Intake & Output 03/31/20 04/01/20 04/01/20 22:59 06:59 14:59 Intake Total 1489 Output Total 300 Balance 1189 Lab Results - Last 24 hrs: Laboratory Results - last 24 hr 03/31/20 03/31/20 03/31/20 Range/Units 12:04 12:04 15:36 WBC (4.0-11.0) K/uL RBC (4.30-5.90) M/uL Hgb (12.0-16.0) g/dL Hct (36.0-46.0) % MCV (80.0-98.0) fL MCH (27.0-32.0) pg MCHC (31.0-37.0) g/dL RDW Std Deviation (28.0-62.0) fl RDW Coeff of Karen (11.0-15.0) % Plt Count (150-400) K/uL MPV (7.40-12.00) fL Neut % (Auto) (48.0-80.0) % Lymph % (Auto) (16.0-40.0) % [place] % (Auto) (0.0-15.0) % Eos % (Auto) (0.0-7.0) % Baso % (Auto) (0.0-1.5) % Neut # (Auto) (1.4-5.7) K/uL Lymph # (Auto) (0.6-2.4) K/uL [place] # (Auto) (0.0-0.8) K/uL Eos # (Auto) (0.0-0.7) K/uL Baso # (Auto) (0.0-0.1) K/uL Nucleated RBC % /100WBC Nucleated RBCs # K/uL Sodium (136-145) mmol/L Potassium (3.5-5.1) mmol/L Chloride (98-107) mmol/L Carbon Dioxide (21.0-32.0) mmol/L BUN (7.0-18.0) mg/dL Creatinine (0.6-1.0) mg/dL Est Cr Clr Drug Dosing mL/min Estimated GFR (MDRD) ml/min Glucose (74-106) mg/dL Hemoglobin A1c 5.2 (4.5-6.2) % Calcium (8.5-10.1) mg/dL Phosphorus (2.6-4.7) mg/dL Magnesium (1.8-2.4) mg/dL Total Bilirubin (0.2-1.0) mg/dL AST (15-37) IU/L ALT (14-63) IU/L Alkaline Phosphatase (46-116) U/L Triglycerides (0-200) mg/dL Cholesterol (50-200) mg/dL LDL Cholesterol, Calc (60-180) mg/dL VLDL Cholesterol (5-55) mg/dL HDL Cholesterol (40-60) mg/dL Cholesterol/HDL Ratio (3.3-6.0) Lipase (73-393) U/L TSH 3rd Generation 0.52 (0.36-3.74) uIU/mL Urine Color YELLOW Urine Appearance CLEAR Urine pH 5.5 (5.0-8.0) Ur Specific [place] 1.015 (1.001-1.035) Urine Protein NEGATIVE (NEGATIVE) mg/dL Urine Glucose (UA) NEGATIVE (NEGATIVE) mg/dL Urine Ketones NEGATIVE (NEGATIVE) mg/dL Urine Occult Blood NEGATIVE (NEGATIVE) Urine Nitrite NEGATIVE (NEGATIVE) Urine Bilirubin NEGATIVE (NEGATIVE) Urine Urobilinogen 0.2 (<2.0) EU/dL Ur Leukocyte Esterase NEGATIVE (NEGATIVE) Urine RBC NONE SEEN (0-2/HPF) Urine WBC NONE SEEN (0-5/HPF) Ur Epithelial Cells RARE (NONE-FEW) Urine Bacteria NOT SEEN (NEGATIVE) 04/01/20 04/01/20 04/01/20 Range/Units 05:43 05:43 05:43 WBC 8.74 (4.0-11.0) K/uL RBC 3.97 L (4.30-5.90) M/uL Hgb 11.6 L (12.0-16.0) g/dL Hct 35.3 L (36.0-46.0) % MCV 88.9 (80.0-98.0) fL MCH 29.2 (27.0-32.0) pg MCHC 32.9 (31.0-37.0) g/dL RDW Std Deviation 44.7 (28.0-62.0) fl RDW Coeff of Karen 14 (11.0-15.0) % Plt Count 257 (150-400) K/uL MPV 8.70 (7.40-12.00) fL Neut % (Auto) 56.1 (48.0-80.0) % Lymph % (Auto) 30.2 (16.0-40.0) % [place] % (Auto) 8.8 (0.0-15.0) % Eos % (Auto) 4.7 (0.0-7.0) % Baso % (Auto) 0.2 (0.0-1.5) % Neut # (Auto) 4.9 (1.4-5.7) K/uL Lymph # (Auto) 2.6 H (0.6-2.4) K/uL [place] # (Auto) 0.8 (0.0-0.8) K/uL Eos # (Auto) 0.4 (0.0-0.7) K/uL Baso # (Auto) 0.0 (0.0-0.1) K/uL Nucleated RBC % 0.0 /100WBC Nucleated RBCs # 0 K/uL Sodium 142 (136-145) mmol/L Potassium 3.8 (3.5-5.1) mmol/L Chloride 109 H (98-107) mmol/L Carbon Dioxide 28.2 (21.0-32.0) mmol/L BUN 15 (7.0-18.0) mg/dL Creatinine 0.9 (0.6-1.0) mg/dL Est Cr Clr Drug Dosing 66.73 mL/min Estimated GFR (MDRD) > 60.0 ml/min Glucose 97 (74-106) mg/dL Hemoglobin A1c (4.5-6.2) % Calcium 7.9 L (8.5-10.1) mg/dL Phosphorus 3.0 (2.6-4.7) mg/dL Magnesium 1.6 L (1.8-2.4) mg/dL Total Bilirubin 0.6 (0.2-1.0) mg/dL AST 25 (15-37) IU/L ALT 51 (14-63) IU/L Alkaline Phosphatase 75 (46-116) U/L Triglycerides 116 (0-200) mg/dL Cholesterol 134 (50-200) mg/dL LDL Cholesterol, Calc 77 (60-180) mg/dL VLDL Cholesterol 23 (5-55) mg/dL HDL Cholesterol 34 L (40-60) mg/dL Cholesterol/HDL Ratio 3.9 (3.3-6.0) Lipase 372 (73-393) U/L TSH 3rd Generation (0.36-3.74) uIU/mL Urine Color Urine Appearance Urine pH (5.0-8.0) Ur Specific [place] (1.001-1.035) Urine Protein (NEGATIVE) mg/dL Urine Glucose (UA) (NEGATIVE) mg/dL Urine Ketones (NEGATIVE) mg/dL Urine Occult Blood (NEGATIVE) Urine Nitrite (NEGATIVE) Urine Bilirubin (NEGATIVE) Urine Urobilinogen (<2.0) EU/dL Ur Leukocyte Esterase (NEGATIVE) Urine RBC (0-2/HPF) Urine WBC (0-5/HPF) Ur Epithelial Cells (NONE-FEW) Urine Bacteria (NEGATIVE) Med Orders - Current: Current Medications Lactated Ringer's (Ringers, Lactated) 1,000 mls @ 125 mls/hr IV ASDIRECTED [facility] Last Admin: 04/01/20 06:20 Dose: 125 mls/hr Pantoprazole Sodium 40 mg/ (Sodium Chloride) 10 mls @ 300 mls/hr IV Q24H [facility] Last Admin: 03/31/20 16:26 Dose: 300 mls/hr Ondansetron HCl (Zofran) 4 mg IVPUSH Q4H PRN PRN Reason: Nausea/Vomiting Last Admin: 04/01/20 08:32 Dose: 4 mg Discontinued Medications Magnesium Sulfate 2 gm/ Premix 50 mls @ 25 mls/hr IV ONETIME ONE Stop: 04/01/20 09:29 Last Admin: 04/01/20 07:51 Dose: 25 mls/hr Iopamidol (Isovue Multipack-370 (76%)) 100 ml IVPUSH ONETIME STA Stop: 03/31/20 13:43 Last Admin: 03/31/20 13:43 Dose: 100 ml Ketorolac Tromethamine (Toradol) 30 mg IVPUSH ONETIME ONE Stop: 03/31/20 12:07 Last Admin: 03/31/20 12:14 Dose: 30 mg Ketorolac Tromethamine (Toradol) 30 mg IV Q8H PRN PRN Reason: Pain (moderate 4-6) Last Admin: 04/01/20 08:32 Dose: 30 mg Morphine Sulfate (Morphine) 4 mg IVPUSH ONETIME ONE Stop: 03/31/20 12:49 Last Admin: 03/31/20 12:54 Dose: 4 mg Ondansetron HCl (Zofran) 4 mg IVPUSH ONETIME ONE Stop: 03/31/20 12:10 Last Admin: 03/31/20 12:14 Dose: 4 mg
[2020-04-01] MEDS: Pantoprazole 40 MG in Sodium Chloride 0.9% 10 ML IV SCH (14:45)
== END 2020-04-01 15:05 | disposition home or self-care (01) ==
LOC: MW.ED 12:01 → MW.MS 14:27
PROVIDERS: ADMIT Student in an Organized Health Care Education/Training Program; ATTEND Student in an Organized Health Care Education/Training Program
DX: K85.90 Acute pancreatitis without necrosis or infection, unspecified (principal); R74.8 Abnormal levels of other serum enzymes; K21.9 Gastro-esophageal reflux disease without esophagitis; Z87.891 Personal history of nicotine dependence; Z90.49 Acquired absence of other specified parts of digestive tract; Z87.19 Personal history of other diseases of the digestive system
CPT/HCPCS: 36415; 74160; 74160-26; 76705; 76705-26; 80048; 80053; 80061; 81001; 82247; 83036; 83690; 83735; 84075; 84100; 84443; 84450; 84460; 85025; 93005; 96374; 96375; 99283; 99285-25; C9113; J1885; J2270; J2405; J3475; J7050; J7120; Q9967

== ENCOUNTER 2020-04-18 07:08 | Observation (INO) | payer OTHER ==
[2020-04-18] MEDS ORDERED: Sodium Chloride 0.9% 10 ML Syringe FLUSH PRN (07:29)
[2020-04-18] MEDS ORDERED: Ondansetron 4 MG/2 ML SDV IVPUSH ONE (07:29)
[2020-04-18] MEDS ORDERED: Famotidine 20 MG/2 ML SDV IVPUSH ONE (07:29)
[2020-04-18] MEDS ORDERED: Morphine 4 MG/ML Syringe IVPUSH ONE ×2 (07:29→09:35)
[2020-04-18] MEDS ORDERED: Sodium Chloride 0.9% 2.5 ML Syringe FLUSH PRN ×2 (07:29)
[2020-04-18] MEDS ORDERED: Sodium Chloride 0.9% 1,000 ML IV ONE (07:32)
--- NOTE | 2020-04-18 07:33 | EDM.PDOC ---
ED HPI GENERAL MEDICAL PROBLEM - General Chief Complaint: Abdominal Pain Stated Complaint: PAIN Time Seen by Provider: 04/18/20 09:54 - History of Present Illness INITIAL COMMENTS - FREE TEXT/NARRATIVE: History of present illness: [Patient presents with upper abdominal pain that began last night she has had a history of pancreatitis she states that it began last night with heartburn with some nausea that she took Zofran for that helped but she is having sharp and burning upper epigastric pain that is like prior pancreatitis she has had a prior cholecystectomy and hysterectomy she denies any other medical problems nothing seems to make it better or worse] Review of systems: As per history of present illness and below otherwise all systems reviewed and negative. Past medical history: As per history of present illness and as reviewed below otherwise noncontributory. Surgical history: As per history of present illness and as reviewed below otherwise noncontributory. Social history: No reported history of drug or alcohol abuse. Family history: As per history of present illness and as reviewed below otherwise noncontributory. Physical exam: HEENT: Atraumatic, normocephalic, pupils reactive, negative for conjunctival pallor or scleral icterus, mucous membranes moist, throat clear, neck supple, nontender, trachea midline. Lungs: Clear to auscultation, breath sounds equal bilaterally, chest nontender. Heart: S1S2, regular, negative for clicks, rubs, or JVD. Abdomen: Soft, nondistended, epigastric tenderness with some mild guarding negative for masses or hepatosplenomegaly. Negative for costovertebral tenderness. Pelvis: Stable nontender. Genitourinary: Deferred. Rectal: Deferred. Extremities: Atraumatic, negative for cords or calf pain. Neurovascular unremarkable. Neuro: Awake, alert, oriented. Cranial nerves II through XII unremarkable. Cerebellum unremarkable. Motor and sensory unremarkable throughout. Exam nonfocal. Diagnostics: [] Therapeutics: Patient will be given some morphine Zofran and Pepcid and reassessed [] Impression: Nominal pain [] Plan: Reassess patient after labs and medications. [] Definitive disposition and diagnosis as appropriate pending reevaluation and review of above. 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 Musculoskeletal History: Reports: Arthritis Neurological History: Reports: None Psychiatric History: Reports: None Endocrine/Metabolic History: Reports: None Other Endocrine/Metabolic History: states has questionable hyperactive thyroid, states is going to be retested Hematologic History: Reports: None Immunologic History: Reports: None Oncologic (Cancer) History: Reports: None Dermatologic History: Reports: None - Infectious Disease History Infectious Disease History: Reports: Chicken Pox - Past Surgical History Head Surgeries/Procedures: Reports: None HEENT Surgical History: Reports: None Cardiovascular Surgical History: Reports: None Respiratory Surgical History: Reports: None GI Surgical History: Reports: Cholecystectomy Female Surgical History: Reports: Hysterectomy, Tubal Ligation Endocrine Surgical History: Reports: None Neurological Surgical History: Reports: None Musculoskeletal Surgical History: Reports: None Oncologic Surgical History: Reports: None Dermatological Surgical History: Reports: None Social & Family History - Family History Family Medical History: Noncontributory - Tobacco Use Smoking Status *Q: Never Smoker - Caffeine Use Caffeine Use: Reports: None ED ROS GENERAL - Review of Systems Review Of Systems: See Below ED EXAM, GENERAL - Physical Exam Exam: See Below Course - Vital Signs Text/Narrative:: The patient CT abdomen pelvis read by radiology does not show any acute pancreatitis or other surgical pathology. Patient was still having some discomfort when she was reexamined at 9:45 AM she will be given more morphine. At 950 I discussed the case with Dr. Samson and she will admit the patient to med surg. Last Recorded V/S: Last Vital Signs Temp 35.2 C L 04/18/20 07:18 Pulse 71 04/18/20 08:52 Resp 21 H 04/18/20 08:52 BP 135/74 04/18/20 08:52 Pulse Ox 96 04/18/20 08:52 - Orders/Labs/Meds Orders: Active Orders 24 hr Category Date Time Status Admission Status [Patient Status] [ADT] Stat ADT 04/18/20 09:46 Active Sodium Chloride 0.9% [Saline Flush] Med 04/18/20 07:29 Active 10 ml FLUSH ASDIRECTED PRN Sodium Chloride 0.9% [Saline Flush] Med 04/18/20 07:29 Active 2.5 ml FLUSH ASDIRECTED PRN Saline Lock Insert [OM.PC] Stat Oth 04/18/20 07:29 Ordered Medication Orders Sodium Chloride (Saline Flush) 10 ml FLUSH ASDIRECTED PRN PRN Reason: Keep Vein Open Last Admin: 04/18/20 07:58 Dose: 10 ml Sodium Chloride (Saline Flush) 2.5 ml FLUSH ASDIRECTED PRN PRN Reason: Keep Vein Open Last Admin: 04/18/20 08:00 Dose: 2.5 ml Labs: Laboratory Tests 04/18/20 04/18/20 04/18/20 Range/Units 07:19 07:19 08:39 WBC 10.87 (4.0-11.0) K/uL RBC 4.99 (4.30-5.90) M/uL Hgb 14.8 (12.0-16.0) g/dL Hct 43.6 (36.0-46.0) % MCV 87.4 (80.0-98.0) fL MCH 29.7 (27.0-32.0) pg MCHC 33.9 (31.0-37.0) g/dL RDW Std Deviation 43.1 (28.0-62.0) fl RDW Coeff of Karen 14 (11.0-15.0) % Plt Count 310 (150-400) K/uL MPV 8.90 (7.40-12.00) fL Neut % (Auto) 63.5 (48.0-80.0) % Lymph % (Auto) 24.0 (16.0-40.0) % Louisa % (Auto) 8.6 (0.0-15.0) % Eos % (Auto) 3.7 (0.0-7.0) % Baso % (Auto) 0.2 (0.0-1.5) % Neut # (Auto) 6.9 H (1.4-5.7) K/uL Lymph # (Auto) 2.6 H (0.6-2.4) K/uL Louisa # (Auto) 0.9 H (0.0-0.8) K/uL Eos # (Auto) 0.4 (0.0-0.7) K/uL Baso # (Auto) 0.0 (0.0-0.1) K/uL Nucleated RBC % 0.0 /100WBC Nucleated RBCs # 0 K/uL Sodium 140 (136-145) mmol/L Potassium 4.1 (3.5-5.1) mmol/L Chloride 104 (98-107) mmol/L Carbon Dioxide 25.4 (21.0-32.0) mmol/L BUN 8 (7.0-18.0) mg/dL Creatinine 0.9 (0.6-1.0) mg/dL Est Cr Clr Drug Dosing 63.92 mL/min Estimated GFR (MDRD) > 60.0 ml/min Glucose 112 H (74-106) mg/dL Calcium 9.3 (8.5-10.1) mg/dL Total Bilirubin 0.6 (0.2-1.0) mg/dL AST 39 H (15-37) IU/L ALT 32 (14-63) IU/L Alkaline Phosphatase 94 (46-116) U/L Total Protein 7.6 (6.4-8.2) g/dL Albumin 3.6 (3.4-5.0) g/dL Globulin 4.0 (2.6-4.0) g/dL Albumin/Globulin Ratio 0.9 (0.9-1.6) Lipase 6507 H (73-393) U/L Urine Color YELLOW Urine Appearance SLT CLOUDY Urine pH 5.0 (5.0-8.0) Ur Specific [place] 1.025 (1.001-1.035) Urine Protein NEGATIVE (NEGATIVE) mg/dL Urine Glucose (UA) NEGATIVE (NEGATIVE) mg/dL Urine Ketones NEGATIVE (NEGATIVE) mg/dL Urine Occult Blood NEGATIVE (NEGATIVE) Urine Nitrite NEGATIVE (NEGATIVE) Urine Bilirubin NEGATIVE (NEGATIVE) Urine Urobilinogen 0.2 (<2.0) EU/dL Ur Leukocyte Esterase NEGATIVE (NEGATIVE) Urine RBC 1-3 (0-2/HPF) Urine WBC 0-3 (0-5/HPF) Ur Epithelial Cells FEW (NONE-FEW) Urine Bacteria RARE (NEGATIVE) Meds: Medications Generic Name Dose Route Start Last Admin Trade Name Freq PRN Reason Stop Dose Admin Sodium Chloride 10 ml 04/18/20 07:29 04/18/20 07:58 Saline Flush FLUSH 10 ml ASDIRECTED PRN Administration Keep Vein Open Sodium Chloride 2.5 ml 04/18/20 07:29 04/18/20 08:00 Saline Flush FLUSH 2.5 ml ASDIRECTED PRN Administration Keep Vein Open Discontinued Medications Generic Name Dose Route Start Last Admin Trade Name Michaela PRN Reason Stop Dose Admin Famotidine 20 mg 04/18/20 07:29 04/18/20 07:57 Pepcid IVPUSH 04/18/20 07:30 20 mg ONETIME ONE Administration Sodium Chloride 1,000 mls @ 999 mls/hr 04/18/20 07:32 04/18/20 07:56 Normal Saline IV 04/18/20 08:32 999 mls/hr .Bolus ONE Administration Iopamidol 100 ml 04/18/20 08:28 04/18/20 08:28 Isovue-370 (76%) IVPUSH 04/18/20 08:29 100 ml ONETIME STA Administration Morphine Sulfate 4 mg 04/18/20 07:29 04/18/20 07:57 Morphine IVPUSH 04/18/20 07:30 4 mg ONETIME ONE Administration Morphine Sulfate 4 mg 04/18/20 09:35 Morphine IVPUSH 04/18/20 09:36 ONETIME ONE Ondansetron HCl 4 mg 04/18/20 07:29 04/18/20 07:57 Zofran IVPUSH 04/18/20 07:30 4 mg ONETIME ONE Administration Sodium Chloride 2.5 ml 04/18/20 07:29 04/18/20 07:58 Saline Flush FLUSH 2.5 ml ASDIRECTED PRN Administration Keep Vein Open Departure - Departure Time of Disposition: 09:54 Disposition: Admitted As Inpatient 64 Condition: Fair Clinical Impression: Abdominal pain Qualifiers: Abdominal location: generalized Qualified Code(s): R10.84 - Generalized abdominal pain Pancreatitis Qualifiers: Chronicity: acute - Discharge Information *PRESCRIPTION DRUG MONITORING PROGRAM REVIEWED*: Not Applicable *COPY OF PRESCRIPTION DRUG MONITORING REPORT IN PATIENT TAWNY: Not Applicable Referrals: Nanci Rios HAND CLIPPER [Primary Care Provider] - Forms: ED Department Discharge Sepsis Event Note - Evaluation Sepsis Screening Result: No Definite Risk - Focused Exam Vital Signs: Vital Signs Temp Pulse Resp BP Pulse Ox 04/18/20 08:52 71 21 H 135/74 96 04/18/20 08:03 72 16 113/84 97 04/18/20 07:18 35.2 C L 88 20 123/84 96 Date Exam was Performed: 04/18/20 Time Exam was Performed: 09:52 - My Orders Last 24 Hours: My Active Orders 04/18/20 07:29 Sodium Chloride 0.9% [Saline Flush] 10 ml FLUSH ASDIRECTED PRN Sodium Chloride 0.9% [Saline Flush] 2.5 ml FLUSH ASDIRECTED PRN Saline Lock Insert [OM.PC] Stat 04/18/20 09:46 Admission Status [Patient Status] [ADT] Stat - Assessment/Plan Last 24 Hours: My Active Orders 04/18/20 07:29 Sodium Chloride 0.9% [Saline Flush] 10 ml FLUSH ASDIRECTED PRN Sodium Chloride 0.9% [Saline Flush] 2.5 ml FLUSH ASDIRECTED PRN Saline Lock Insert [OM.PC] Stat 04/18/20 09:46 Admission Status [Patient Status] [ADT] Stat
[2020-04-18 07:48] LABS: BLOOD UREA NITROGEN,BUN 8 mg/dL (7.0-18.0); CARBON DIOXIDE,CO2 25.4 mmol/L (21.0-32.0); CHLORIDE,CL 104 mmol/L (98-107); GLUCOSE RANDOM 112 mg/dL (74-106); POTASSIUM,K 4.1 mmol/L (3.5-5.1); SODIUM,NA 140 mmol/L (136-145)
[2020-04-18 08:10] LABS: LIPASE 6507 U/L (73-393)
[2020-04-18] MEDS ORDERED: Iopamidol 755 Mg/ML 100 ML Bottle IVPUSH STA (08:28)
--- NOTE | 2020-04-18 09:22 | CT ---
CT abdomen and pelvis Technique: Multiple axial sections were obtained from above the dome of the diaphragm inferiorly through the pubic symphysis. Intravenous contrast was utilized. No oral contrast has been given. Reconstructed coronal and sagittal images were obtained. Comparison: Previous CT abdomen and pelvis exam of 03/31/20. Findings: Visualized lung bases show nothing acute. Fluid noted within the distal esophagus compatible with chronic reflux. Liver contains no focal parenchymal abnormality. Mild fatty infiltration appears to be present within the liver. Spleen appears within normal limits. Adrenal glands show no nodule. Kidneys show symmetric contrast enhancement. No hydronephrosis or mass is appreciated. Surgical clips seen from prior cholecystectomy. Aorta shows no aneurysm. No retroperitoneal adenopathy or mesenteric abnormalities are seen. No pelvic mass or adenopathy is noted. No bowel wall thickening is appreciated. Right ovary shows a 3.3 cm cyst. No pelvic mass or adenopathy is otherwise seen. No free fluid or inflammatory change is appreciated. Appendix felt to be visualized and is normal in size. Bone window settings were reviewed. Vacuum phenomena is noted within both sacroiliac joints. Slight degenerative change is noted within the spine. Impression: 1. Fluid within the distal esophagus compatible with chronic reflux. 2. Other nonacute findings as noted above. 3. No CT evidence of pancreatitis. Diagnostic code #3 This report was dictated in MDT
--- NOTE | 2020-04-18 11:02 | PCM.HP.2 ---
H&P History of Present Illness - General Date of Service: 04/18/20 Admit Problem/Dx: Admission Diagnosis/Problem Admission Diagnosis/Problem Pancreatitis Source of Information: Patient, Old Records History Limitations: Reports: No Limitations - History of Present Illness Initial Comments - Free Text/Narative: This 45 year old female with pmh of obesity, reflux and pancreatitis presented to the ED with complaints of RUQ pain, with inability to eat much food since she was last discharged 2 weeks ago. She reports she was feeling well going home and has slowly tried to advance diet at home but gets a lot of pain and heartburn when her diet includes milk. For the last three days she has had significant return in pain and some nausea. She denies fevers. No diarrhea or black or bloody BMs. She reports she had her gall bladder removed, no stones were ever noted on imaging, but when it was removed there was fine sand like material per her surgeon in the gall bladder. She denies alcohol use, maybe 1-2 drinks in a year. No tobacco use and no recreational drug use. In the ED no leukocytosis noted, BM WNL, AST ALT WNL as well. Lipase elevated [place] 6507. CT of abdomen and pelvis obtained, which revealed chronic reflux with fluid in distal esophagus otherwise no acute findings noted. She was treated with Pepcid, Morphine and Zofran. She received 1 L NS bolus. VS Stable. She will be admitted observation for acute pancreatitis. 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 Bleeding Musculoskeletal History: Reports: Arthritis Neurological History: Reports: None Psychiatric History: Reports: None Endocrine/Metabolic History: Reports: None Other Endocrine/Metabolic History: states has questionable hyperactive thyroid, states is going to be retested Hematologic History: Reports: None Immunologic History: Reports: None Oncologic (Cancer) History: Reports: None Dermatologic History: Reports: None - Infectious Disease History Infectious Disease History: Reports: Chicken Pox - Past Surgical History Head Surgeries/Procedures: Reports: None HEENT Surgical History: Reports: None Cardiovascular Surgical History: Reports: None Respiratory Surgical History: Reports: None GI Surgical History: Reports: Cholecystectomy Female Surgical History: Reports: Hysterectomy, Tubal Ligation Endocrine Surgical History: Reports: None Neurological Surgical History: Reports: None Musculoskeletal Surgical History: Reports: None Oncologic Surgical History: Reports: None Dermatological Surgical History: Reports: None Social & Family History - Family History Family Medical History: Noncontributory - Tobacco Use Smoking Status *Q: Never Smoker - Caffeine Use Caffeine Use: Reports: None - Alcohol Use Alcohol Use History: No - Recreational Drug Use Recreational Drug Use: No - Living Situation & Occupation Living situation: Reports: H&P Review of Systems - Review of Systems: Review Of Systems: See Below General: Reports: Malaise. Denies: Fever, Chills, Weight Loss HEENT: Reports: No Symptoms. Denies: Headaches, Sinus Congestion, Sore Throat Pulmonary: Reports: No Symptoms. Denies: Shortness of Breath Cardiovascular: Reports: No Symptoms. Denies: Chest Pain, Orthopnea, Edema Gastrointestinal: Reports: Abdominal Pain (RUQ), Distension, Nausea. Denies: Black Stool, Bloody Stool, Constipation, Diarrhea, Vomiting Genitourinary: Reports: No Symptoms. Denies: Dysuria, Frequency, Burning Musculoskeletal: Reports: No Symptoms Skin: Reports: No Symptoms Psychiatric: Reports: No Symptoms Neurological: Reports: No Symptoms Hematologic/Lymphatic: Reports: No Symptoms Immunologic: Reports: No Symptoms Exam - Exam Exam: See Below - Vital Signs Vital Signs: Last Vital Signs Temp 95.3 F L 04/18/20 07:18 Pulse 72 04/18/20 09:56 Resp 16 04/18/20 09:56 BP 131/79 04/18/20 09:56 Pulse Ox 97 04/18/20 09:56 Weight: 106.594 kg - Exam General: Alert, Oriented, Cooperative HEENT: Conjunctiva Clear, Mucosa Moist & Melvin, Pupils Equal Lungs: Clear to Auscultation, Normal Respiratory Effort Cardiovascular: Regular Rate, Regular Rhythm GI/Abdominal Exam: Normal Bowel Sounds, Soft, No Distention, No Mass, Tender ( RUQ exquistly tender), Other (obese abdomen) Back Exam: Normal Inspection, Full Range of Motion Extremities: Normal Inspection, Normal Range of Motion, Non-Tender, No Pedal Edema Skin: Ecchymosis (bruise to L forearm from previous lab draw) Neuro Extensive - Mental Status: Alert, Oriented x3 Psychiatric: Alert, Normal Affect, Normal Mood - Patient Data Lab Results Last 24 hrs: Laboratory Results - last 24 hr 04/18/20 04/18/20 04/18/20 Range/Units 07:19 07:19 08:39 WBC 10.87 (4.0-11.0) K/uL RBC 4.99 (4.30-5.90) M/uL Hgb 14.8 (12.0-16.0) g/dL Hct 43.6 (36.0-46.0) % MCV 87.4 (80.0-98.0) fL MCH 29.7 (27.0-32.0) pg MCHC 33.9 (31.0-37.0) g/dL RDW Std Deviation 43.1 (28.0-62.0) fl RDW Coeff of Karen 14 (11.0-15.0) % Plt Count 310 (150-400) K/uL MPV 8.90 (7.40-12.00) fL Neut % (Auto) 63.5 (48.0-80.0) % Lymph % (Auto) 24.0 (16.0-40.0) % Angelina % (Auto) 8.6 (0.0-15.0) % Eos % (Auto) 3.7 (0.0-7.0) % Baso % (Auto) 0.2 (0.0-1.5) % Neut # (Auto) 6.9 H (1.4-5.7) K/uL Lymph # (Auto) 2.6 H (0.6-2.4) K/uL Angelina # (Auto) 0.9 H (0.0-0.8) K/uL Eos # (Auto) 0.4 (0.0-0.7) K/uL Baso # (Auto) 0.0 (0.0-0.1) K/uL Nucleated RBC % 0.0 /100WBC Nucleated RBCs # 0 K/uL Sodium 140 (136-145) mmol/L Potassium 4.1 (3.5-5.1) mmol/L Chloride 104 (98-107) mmol/L Carbon Dioxide 25.4 (21.0-32.0) mmol/L BUN 8 (7.0-18.0) mg/dL Creatinine 0.9 (0.6-1.0) mg/dL Est Cr Clr Drug Dosing 63.92 mL/min Estimated GFR (MDRD) > 60.0 ml/min Glucose 112 H (74-106) mg/dL Calcium 9.3 (8.5-10.1) mg/dL Total Bilirubin 0.6 (0.2-1.0) mg/dL AST 39 H (15-37) IU/L ALT 32 (14-63) IU/L Alkaline Phosphatase 94 (46-116) U/L Total Protein 7.6 (6.4-8.2) g/dL Albumin 3.6 (3.4-5.0) g/dL Globulin 4.0 (2.6-4.0) g/dL Albumin/Globulin Ratio 0.9 (0.9-1.6) Lipase 6507 H (73-393) U/L Urine Color YELLOW Urine Appearance SLT CLOUDY Urine pH 5.0 (5.0-8.0) Ur Specific [place] 1.025 (1.001-1.035) Urine Protein NEGATIVE (NEGATIVE) mg/dL Urine Glucose (UA) NEGATIVE (NEGATIVE) mg/dL Urine Ketones NEGATIVE (NEGATIVE) mg/dL Urine Occult Blood NEGATIVE (NEGATIVE) Urine Nitrite NEGATIVE (NEGATIVE) Urine Bilirubin NEGATIVE (NEGATIVE) Urine Urobilinogen 0.2 (<2.0) EU/dL Ur Leukocyte Esterase NEGATIVE (NEGATIVE) Urine RBC 1-3 (0-2/HPF) Urine WBC 0-3 (0-5/HPF) Ur Epithelial Cells FEW (NONE-FEW) Urine Bacteria RARE (NEGATIVE) Result Diagrams: 04/18/20 07:19 04/18/20 07:19 Sepsis Event Note - Evaluation Sepsis Screening Result: No Definite Risk - Focused Exam Vital Signs: Vital Signs Temp Pulse Resp BP Pulse Ox 04/18/20 09:56 72 16 131/79 97 04/18/20 08:52 71 21 H 135/74 96 04/18/20 08:03 72 16 113/84 97 05/28/20 07:18 95.3 F L 88 20 123/84 96 Date Exam was Performed: 04/18/20 Time Exam was Performed: 11:13 - Problem List (1) Hx of cholecystectomy SNOMED Code(s): 303494224, 663215993 ICD Code: Z90.49 - ACQUIRED ABSENCE OF OTHER SPECIFIED PARTS OF DIGESTIVE TRACT Status: Acute Current Visit: Yes (2) Obesity SNOMED Code(s): 744453522, 713348664 ICD Code: E66.9 - OBESITY, UNSPECIFIED Status: Acute Current Visit: Yes (3) Pancreatitis SNOMED Code(s): 93610286 ICD Code: K85.90 - ACUTE PANCREATITIS WITHOUT NECROSIS OR INFECTION, UNSP Status: Acute Current Visit: Yes Qualifiers: Chronicity: acute (4) GERD (gastroesophageal reflux disease) SNOMED Code(s): 195324081 ICD Code: K21.9 - GASTRO-ESOPHAGEAL REFLUX DISEASE WITHOUT ESOPHAGITIS Status: Acute Current Visit: No Problem List Initiated/Reviewed/Updated: No Orders Last 24hrs: Active Orders 24 hr Category Date Time Status Admission Status [Patient Status] [ADT] Stat ADT 04/18/20 09:46 Active Antiembolic Devices [RC] PER UNIT ROUTINE Care 04/18/20 10:47 Active Intake and Output [RC] QSHIFT Care 04/18/20 10:47 Active May Shower [RC] ASDIRECTED Care 04/18/20 10:46 Active Oxygen Therapy [RC] PRN Care 04/18/20 10:46 Active Up ad Chio [RC] ASDIRECTED Care 04/18/20 10:46 Active VTE/DVT Education [RC] PER UNIT ROUTINE Care 04/18/20 10:46 Active Vital Signs [RC] Q4H Care 04/18/20 10:46 Active NPO [Nothing Per Oral Diet] [DIET] Diet 04/18/20 Lunch Active Abdomen w wo Cont [MR] Urgent Exams 04/18/20 10:45 Ordered CBC WITH AUTO DIFF [HEME] AM Lab 04/19/20 05:11 Ordered CBC WITH AUTO DIFF [HEME] AM Lab 04/20/20 05:11 Ordered CBC WITH AUTO DIFF [HEME] AM Lab 04/21/20 05:11 Ordered COMPREHENSIVE METABOLIC PN,CMP [CHEM] AM Lab 04/19/20 05:11 Ordered COMPREHENSIVE METABOLIC PN,CMP [CHEM] AM Lab 04/20/20 05:11 Ordered COMPREHENSIVE METABOLIC PN,CMP [CHEM] AM Lab 04/21/20 05:11 Ordered LIPASE [CHEM] AM Lab 04/19/20 05:11 Ordered MAGNESIUM [CHEM] AM Lab 04/19/20 05:11 Ordered MAGNESIUM [CHEM] AM Lab 04/20/20 05:11 Ordered MAGNESIUM [CHEM] AM Lab 04/21/20 05:11 Ordered Acetaminophen [Tylenol] Med 04/18/20 10:46 Active 650 mg PO Q4H PRN Ondansetron [Zofran] Med 04/18/20 10:46 Active 4 mg IVPUSH Q4H PRN Pantoprazole [ProTONIX IV] 40 mg Med 04/18/20 11:00 Active Sodium Chloride 0.9% [Normal Saline] 10 ml IV Q12H Sodium Chloride 0.9% [Normal Saline] 1,000 ml Med 04/18/20 11:00 Active IV Q5H Sodium Chloride 0.9% [Saline Flush] Med 04/18/20 07:29 Active 10 ml FLUSH ASDIRECTED PRN Sodium Chloride 0.9% [Saline Flush] Med 04/18/20 07:29 Active 2.5 ml FLUSH ASDIRECTED PRN Saline Lock Insert [OM.PC] Stat Oth 04/18/20 07:29 Ordered Sequential Compression Device [OM.PC] Per Unit Routine Oth 04/18/20 10:47 Ordered Resuscitation Status Routine Resus Stat 04/18/20 10:46 Ordered Medication Orders Acetaminophen (Tylenol) 650 mg PO Q4H PRN PRN Reason: Pain (Mild 1-3)/fever Sodium Chloride (Normal Saline) 1,000 mls @ 175 mls/hr IV Q5H ALEXIS Pantoprazole Sodium 40 mg/ (Sodium Chloride) 10 mls @ 300 mls/hr IV Q12H ALEXIS Ondansetron HCl (Zofran) 4 mg IVPUSH Q4H PRN PRN Reason: Nausea Sodium Chloride (Saline Flush) 10 ml FLUSH ASDIRECTED PRN PRN Reason: Keep Vein Open Last Admin: 04/18/20 07:58 Dose: 10 ml Sodium Chloride (Saline Flush) 2.5 ml FLUSH ASDIRECTED PRN PRN Reason: Keep Vein Open Last Admin: 04/18/20 08:00 Dose: 2.5 ml Assessment/Plan Comment:: This 45 year old female admitted with acute pancreatitis 1. Acute pancreatitis: - Due to hx of elevate lipase which rapidly returned to normal and hx gallstones will obtained MRCP to evaluate for biliary dilation or stones. - Bowel rest - Zofran for nausea PRN - Protonix q12 IV - Dilaudid 0.5 mg PRN pain - NS 175 mls/hr - Recheck lipase in am. - Monitor labs in the am. - Lipids WNL last admission 04/01/20, A1c 5.2 VTE prophylaxis: SCDs and ambulation Dispo: 2 days pending improvement - Mortality Measure Prognosis:: Good
[2020-04-18] MEDS ORDERED: LORazepam 2 MG/ML SDV IVPUSH ONE (11:08)
[2020-04-18] MEDS: Sodium Chloride 0.9% 1,000 ML IV SCH ×3 (11:35→22:47)
[2020-04-18] MEDS: Pantoprazole 40 MG in Sodium Chloride 0.9% 10 ML IV SCH ×2 (11:36→23:18)
[2020-04-18] MEDS: HYDROmorphone 2 MG/ML Syringe IVPUSH PRN ×2 (12:57→17:08)
[2020-04-18] MEDS ORDERED: Gadobenate Dimeglumine 529 MG/ML 20 ML SDV IVPUSH STA (13:19)
[2020-04-18] MEDS: Ondansetron 4 MG/2 ML SDV IVPUSH PRN ×3 (14:13→22:45)
--- NOTE | 2020-04-18 14:23 | MR ---
MRI abdomen with MRCP (without and with intravenous contrast) Technique: Various sequences were obtained in axial and coronal planes. Postcontrast T1 axial images and coronal images also obtained. MRCP study also performed. Findings: CHD is mildly prominent in size measuring approximately 1.3 cm. Distal CBD measures about 7.6 mm in size. There are no filling defects being seen within the visualized ducts. Kidneys show symmetric contrast enhancement. Pancreas shows no discrete abnormality. Adrenal glands show no nodule. Liver contains no focal abnormality. Spleen appears normal. No edema is seen within the pancreas or around the pancreas. Impression: 1. Dilated CHD and CBD. This is most likely residual from prior cholecystectomy. No filling defects are seen to indicate choledocholithiasis. 2. Other portions of the MRI study of the abdomen are also unremarkable as described above. Diagnostic code #1 This report was dictated in MDT
[2020-04-18] MEDS: Acetaminophen 325 MG Tab PO PRN (20:39)
[2020-04-18] MEDS ORDERED: Melatonin 3 MG Tab PO SCH (21:00)
[2020-04-19] MEDS: Sodium Chloride 0.9% 1,000 ML IV SCH ×3 (03:46→13:20)
[2020-04-19] MEDS: Acetaminophen 325 MG Tab PO PRN ×2 (06:11→10:35)
[2020-04-19 06:31] LABS: BLOOD UREA NITROGEN,BUN 6 mg/dL (7.0-18.0); CARBON DIOXIDE,CO2 24.1 mmol/L (21.0-32.0); CHLORIDE,CL 109 mmol/L (98-107); GLUCOSE RANDOM 96 mg/dL (74-106); LIPASE 148 U/L (73-393); POTASSIUM,K 3.8 mmol/L (3.5-5.1); SODIUM,NA 141 mmol/L (136-145)
[2020-04-19] MEDS: Ondansetron 4 MG/2 ML SDV IVPUSH PRN (07:24)
--- NOTE | 2020-04-19 08:15 | PCM.PN ---
- General Info Date of Service: 04/19/20 Subjective Update: Patient reports that her pain has significantly improved but she feels nauseous. Doesn't like the way morphine or Dilaudid makes her feel. - Review of Systems General: Reports: No Symptoms HEENT: Reports: No Symptoms Pulmonary: Reports: No Symptoms Cardiovascular: Reports: No Symptoms Gastrointestinal: Reports: Nausea. Denies: Abdominal Pain, Vomiting Genitourinary: Reports: No Symptoms Musculoskeletal: Reports: No Symptoms Skin: Reports: No Symptoms Neurological: Reports: No Symptoms Psychiatric: Reports: No Symptoms - Patient Data Vitals - Most Recent: Last Vital Signs Temp 97.2 F 04/19/20 07:50 Pulse 63 04/19/20 07:50 Resp 16 04/19/20 07:50 BP 124/62 04/19/20 07:50 Pulse Ox 96 04/19/20 07:50 Weight - Most Recent: 106.594 kg I&O - Last 24 Hours: Intake & Output 04/18/20 04/19/20 04/19/20 22:59 06:59 14:59 Intake Total 823 1807 Output Total 350 300 Balance 473 1507 Lab Results Last 24 Hours: Laboratory Results - last 24 hr 04/18/20 04/19/20 04/19/20 Range/Units 08:39 05:43 05:43 WBC 5.91 (4.0-11.0) K/uL RBC 3.57 L (4.30-5.90) M/uL Hgb 10.7 L (12.0-16.0) g/dL Hct 31.7 L (36.0-46.0) % MCV 88.8 (80.0-98.0) fL MCH 30.0 (27.0-32.0) pg MCHC 33.8 (31.0-37.0) g/dL RDW Std Deviation 40.7 (28.0-62.0) fl RDW Coeff of Karen 13 (11.0-15.0) % Plt Count 218 (150-400) K/uL MPV 9.00 (7.40-12.00) fL Neut % (Auto) 57.0 (48.0-80.0) % Lymph % (Auto) 29.1 (16.0-40.0) % [place] % (Auto) 8.5 (0.0-15.0) % Eos % (Auto) 5.2 (0.0-7.0) % Baso % (Auto) 0.2 (0.0-1.5) % Neut # (Auto) 3.4 (1.4-5.7) K/uL Lymph # (Auto) 1.7 (0.6-2.4) K/uL [place] # (Auto) 0.5 (0.0-0.8) K/uL Eos # (Auto) 0.3 (0.0-0.7) K/uL Baso # (Auto) 0.0 (0.0-0.1) K/uL Sodium 141 (136-145) mmol/L Potassium 3.8 (3.5-5.1) mmol/L Chloride 109 H (98-107) mmol/L Carbon Dioxide 24.1 (21.0-32.0) mmol/L BUN 6 L (7.0-18.0) mg/dL Creatinine 0.7 (0.6-1.0) mg/dL Est Cr Clr Drug Dosing 82.19 mL/min Estimated GFR (MDRD) > 60.0 ml/min Glucose 96 (74-106) mg/dL Calcium 7.3 L (8.5-10.1) mg/dL Magnesium 1.5 L (1.8-2.4) mg/dL Total Bilirubin 0.4 (0.2-1.0) mg/dL AST 26 (15-37) IU/L ALT 44 (14-63) IU/L Alkaline Phosphatase 77 (46-116) U/L Total Protein 5.4 L (6.4-8.2) g/dL Albumin 2.5 L (3.4-5.0) g/dL Globulin 2.9 (2.6-4.0) g/dL Albumin/Globulin Ratio 0.9 (0.9-1.6) Lipase 148 (73-393) U/L Urine Color YELLOW Urine Appearance SLT CLOUDY Urine pH 5.0 (5.0-8.0) Ur Specific [place] 1.025 (1.001-1.035) Urine Protein NEGATIVE (NEGATIVE) mg/dL Urine Glucose (UA) NEGATIVE (NEGATIVE) mg/dL Urine Ketones NEGATIVE (NEGATIVE) mg/dL Urine Occult Blood NEGATIVE (NEGATIVE) Urine Nitrite NEGATIVE (NEGATIVE) Urine Bilirubin NEGATIVE (NEGATIVE) Urine Urobilinogen 0.2 (<2.0) EU/dL Ur Leukocyte Esterase NEGATIVE (NEGATIVE) Urine RBC 1-3 (0-2/HPF) Urine WBC 0-3 (0-5/HPF) Ur Epithelial Cells FEW (NONE-FEW) Urine Bacteria RARE (NEGATIVE) Med Orders - Current: Current Medications Acetaminophen (Tylenol) 650 mg PO Q4H PRN PRN Reason: Pain (Mild 1-3)/fever Last Admin: 04/19/20 06:11 Dose: 650 mg Hydromorphone HCl (Dilaudid) 0.5 mg IVPUSH Q4H PRN PRN Reason: Pain Last Admin: 04/18/20 17:08 Dose: 0.5 mg Sodium Chloride (Normal Saline) 1,000 mls @ 175 mls/hr IV Q5H [facility] Last Admin: 04/19/20 03:46 Dose: 175 mls/hr Pantoprazole Sodium 40 mg/ (Sodium Chloride) 10 mls @ 300 mls/hr IV Q12H [facility] Last Admin: 04/18/20 23:18 Dose: 300 mls/hr Melatonin (Melatonin) 6 mg PO BEDTIME [facility] Last Admin: 04/18/20 22:51 Dose: 6 mg Ondansetron HCl (Zofran) 4 mg IVPUSH Q4H PRN PRN Reason: Nausea Last Admin: 04/19/20 07:24 Dose: 4 mg Sodium Chloride (Saline Flush) 10 ml FLUSH ASDIRECTED PRN PRN Reason: Keep Vein Open Last Admin: 04/18/20 07:58 Dose: 10 ml Sodium Chloride (Saline Flush) 2.5 ml FLUSH ASDIRECTED PRN PRN Reason: Keep Vein Open Last Admin: 04/18/20 08:00 Dose: 2.5 ml Discontinued Medications Famotidine (Pepcid) 20 mg IVPUSH ONETIME ONE Stop: 04/18/20 07:30 Last Admin: 04/18/20 07:57 Dose: 20 mg Gadobenate Dimeglumine (Multihance) 20 ml IVPUSH ONETIME STA Stop: 04/18/20 13:20 Last Admin: 04/18/20 13:26 Dose: 20 ml Sodium Chloride (Normal Saline) 1,000 mls @ 999 mls/hr IV .Bolus ONE Stop: 04/18/20 08:32 Last Admin: 04/18/20 07:56 Dose: 999 mls/hr Iopamidol (Isovue-370 (76%)) 100 ml IVPUSH ONETIME STA Stop: 04/18/20 08:29 Last Admin: 04/18/20 08:28 Dose: 100 ml Lorazepam (Ativan) 0.5 mg IVPUSH ONCALL ONE Stop: 04/18/20 11:09 Last Admin: 04/18/20 12:43 Dose: 0.5 mg Morphine Sulfate (Morphine) 4 mg IVPUSH ONETIME ONE Stop: 04/18/20 07:30 Last Admin: 04/18/20 07:57 Dose: 4 mg Morphine Sulfate (Morphine) 4 mg IVPUSH ONETIME ONE Stop: 04/18/20 09:36 Last Admin: 04/18/20 09:55 Dose: 4 mg Ondansetron HCl (Zofran) 4 mg IVPUSH ONETIME ONE Stop: 04/18/20 07:30 Last Admin: 04/18/20 07:57 Dose: 4 mg Sodium Chloride (Saline Flush) 2.5 ml FLUSH ASDIRECTED PRN PRN Reason: Keep Vein Open Last Admin: 04/18/20 07:58 Dose: 2.5 ml - Exam General: Alert, Oriented, Cooperative Lungs: Clear to Auscultation, Normal Respiratory Effort Cardiovascular: Regular Rate, Regular Rhythm GI/Abdominal Exam: Normal Bowel Sounds, Soft, Non-Tender, No Distention Extremities: No Pedal Edema Skin: Warm, Dry, Intact Neurological: No New Focal Deficit Psy/Mental Status: Alert, Normal Affect, Normal Mood Sepsis Event Note - Evaluation Sepsis Screening Result: No Definite Risk - Focused Exam Vital Signs: Vital Signs Temp Pulse Resp BP Pulse Ox 04/19/20 07:50 97.2 F 63 16 124/62 96 04/19/20 04:37 97.7 F 64 20 112/55 L 94 L 04/18/20 23:29 98.1 F 61 18 111/56 L 95 Date Exam was Performed: 04/19/20 Time Exam was Performed: 08:11 - Problem List Review Problem List Initiated/Reviewed/Updated: Yes - Plan Plan:: 1. Acute pancreatitis- lipase now wnl and abdominal pain resolved. Still has nausea. Yesterday MRCP revealed CHD and CBD dilation consistent with prior cholecystectomy. H pylori pending. Advance diet as tolerated, continue IVF. Zofran for nausea/vomiting and ____ for pain.
[2020-04-19] MEDS ORDERED: Ketorolac 30 MG/ML SDV IVPUSH PRN (09:58)
--- NOTE | 2020-04-19 10:20 | PCM.DCSUM1 ---
Discharge Summary - Hospital Course HPI Initial Comments: Admission Date: 04/18/20 Discharge Date: 04/19/20 Admission Diagnosis: 1. Acute Pancreatitis Discharge Diagnosis: 1. Acute Pancreatitis- resolved Procedures: None Consults: None Hospital Course: This 45 year old female with pmh of obesity, reflux and pancreatitis presented to the ED with complaints of RUQ pain, with inability to eat much food since she was last discharged 2 weeks ago. She was admitted two weeks ago for pancreatitis, at that time triglycerides were normal, RUQ US showed no acute findings and patient denied alcohol use. In the ED no leukocytosis noted, BM WNL, AST ALT WNL as well. [place]ase [place] [address]507. CT of abdomen and pelvis obtained, which revealed chronic reflux with fluid in distal esophagus otherwise no acute findings noted. She was treated with Pepcid, Morphine and Zofran. She received 1 L NS bolus. VS Stable. She was admitted to the medical floor, treated with IVF, pain and nausea control. MRCP was obtained CHD and CBD dilation consistent with post cholecystectomy changes. Over the course of her stay her symptoms improved, her diet was advanced, and her lipase resolved. By day of discharge, she felt better and was requesting discharge. Disposition: Home Discharge Condition: vitals stable, tolerating oral diet, ambulating without difficulty, symptom improvement Discharge Instructions: advance diet as tolerated, activity as tolerated, take medications as prescribed. Symptoms to report to physician include fever/chills , chest pain, shortness of breath, abdominal pain, erythema, drainage/discharge , or not improving as expected Discharge Medications: Ketorolac [Toradol] 10 mg PO Q6H PRN Follow-up: 1. PCP 2. GI - Discharge Data Discharge Date: 04/19/20 Discharge Disposition: Home, Self-Care 01 Condition: Stable - Referral to Home Health Primary Care Physician: Nanci Rios NP - Discharge Plan *PRESCRIPTION DRUG MONITORING PROGRAM REVIEWED*: Not Applicable *COPY OF PRESCRIPTION DRUG MONITORING REPORT IN PATIENT TAWNY: Not Applicable Prescriptions/Med Rec: Ketorolac [Toradol] 10 mg PO Q6H PRN 3 Days #12 tab PRN Reason: Pain Home Medications: Home Meds Ketorolac [Toradol] 10 mg PO Q6H PRN 3 Days #12 tab 04/19/20 [Rx] Patient Handouts: Acute Pancreatitis, [id number] Referrals: Nanci Rios NP [Primary Care Provider] - 05/01/20 10:30 am (Please arrive 15 minutes early with identification and insurance cards to be seen.) Shannan Horton NP [Ordering Only Provider] - 04/25/20 9:00 am - Discharge Summary/Plan Comment DC Time >30 min.: No - Patient Data Vitals - Most Recent: Last Vital Signs Temp 97.2 F 04/19/20 07:50 Pulse 63 04/19/20 07:50 Resp 16 04/19/20 07:50 BP 124/62 04/19/20 07:50 Pulse Ox 96 04/19/20 07:50 Weight - Most Recent: 106.594 kg I&O - Last 24 hours: Intake & Output 04/18/20 04/19/20 04/19/20 22:59 06:59 14:59 Intake Total 823 1807 Output Total 350 300 Balance 473 1507 Lab Results - Last 24 hrs: Laboratory Results - last 24 hr 04/19/20 04/19/20 Range/Units 05:43 05:43 WBC 5.91 (4.0-11.0) K/uL RBC 3.57 L (4.30-5.90) M/uL Hgb 10.7 L (12.0-16.0) g/dL Hct 31.7 L (36.0-46.0) % MCV 88.8 (80.0-98.0) fL MCH 30.0 (27.0-32.0) pg MCHC 33.8 (31.0-37.0) g/dL RDW Std Deviation 40.7 (28.0-62.0) fl RDW Coeff of Karen 13 (11.0-15.0) % Plt Count 218 (150-400) K/uL MPV 9.00 (7.40-12.00) fL Neut % (Auto) 57.0 (48.0-80.0) % Lymph % (Auto) 29.1 (16.0-40.0) % [place] % (Auto) 8.5 (0.0-15.0) % Eos % (Auto) 5.2 (0.0-7.0) % Baso % (Auto) 0.2 (0.0-1.5) % Neut # (Auto) 3.4 (1.4-5.7) K/uL Lymph # (Auto) 1.7 (0.6-2.4) K/uL [place] # (Auto) 0.5 (0.0-0.8) K/uL Eos # (Auto) 0.3 (0.0-0.7) K/uL Baso # (Auto) 0.0 (0.0-0.1) K/uL Sodium 141 (136-145) mmol/L Potassium 3.8 (3.5-5.1) mmol/L Chloride 109 H (98-107) mmol/L Carbon Dioxide 24.1 (21.0-32.0) mmol/L BUN 6 L (7.0-18.0) mg/dL Creatinine 0.7 (0.6-1.0) mg/dL Est Cr Clr Drug Dosing 82.19 mL/min Estimated GFR (MDRD) > 60.0 ml/min Glucose 96 (74-106) mg/dL Calcium 7.3 L (8.5-10.1) mg/dL Magnesium 1.5 L (1.8-2.4) mg/dL Total Bilirubin 0.4 (0.2-1.0) mg/dL AST 26 (15-37) IU/L ALT 44 (14-63) IU/L Alkaline Phosphatase 77 (46-116) U/L Total Protein 5.4 L (6.4-8.2) g/dL Albumin 2.5 L (3.4-5.0) g/dL Globulin 2.9 (2.6-4.0) g/dL Albumin/Globulin Ratio 0.9 (0.9-1.6) Lipase 148 (73-393) U/L Med Orders - Current: Current Medications Acetaminophen (Tylenol) 650 mg PO Q4H PRN PRN Reason: Pain (Mild 1-3)/fever Last Admin: 04/19/20 06:11 Dose: 650 mg Sodium Chloride (Normal Saline) 1,000 mls @ 175 mls/hr IV Q5H [facility] Last Admin: 04/19/20 08:36 Dose: 175 mls/hr Pantoprazole Sodium 40 mg/ (Sodium Chloride) 10 mls @ 300 mls/hr IV Q12H [facility] Last Admin: 04/18/20 23:18 Dose: 300 mls/hr Ketorolac Tromethamine (Toradol) 30 mg IVPUSH Q6H PRN PRN Reason: Pain Stop: 04/24/20 09:58 Melatonin (Melatonin) 6 mg PO BEDTIME [facility] Last Admin: 04/18/20 22:51 Dose: 6 mg Ondansetron HCl (Zofran) 4 mg IVPUSH Q4H PRN PRN Reason: Nausea Last Admin: 04/19/20 07:24 Dose: 4 mg Sodium Chloride (Saline Flush) 10 ml FLUSH ASDIRECTED PRN PRN Reason: Keep Vein Open Last Admin: 04/18/20 07:58 Dose: 10 ml Sodium Chloride (Saline Flush) 2.5 ml FLUSH ASDIRECTED PRN PRN Reason: Keep Vein Open Last Admin: 04/18/20 08:00 Dose: 2.5 ml Discontinued Medications Famotidine (Pepcid) 20 mg IVPUSH ONETIME ONE Stop: 04/18/20 07:30 Last Admin: 04/18/20 07:57 Dose: 20 mg Gadobenate Dimeglumine (Multihance) 20 ml IVPUSH ONETIME STA Stop: 04/18/20 13:20 Last Admin: 04/18/20 13:26 Dose: 20 ml Hydromorphone HCl (Dilaudid) 0.5 mg IVPUSH Q4H PRN PRN Reason: Pain Last Admin: 04/18/20 17:08 Dose: 0.5 mg Sodium Chloride (Normal Saline) 1,000 mls @ 999 mls/hr IV .Bolus ONE Stop: 04/18/20 08:32 Last Admin: 04/18/20 07:56 Dose: 999 mls/hr Iopamidol (Isovue-370 (76%)) 100 ml IVPUSH ONETIME STA Stop: 04/18/20 08:29 Last Admin: 04/18/20 08:28 Dose: 100 ml Lorazepam (Ativan) 0.5 mg IVPUSH ONCALL ONE Stop: 04/18/20 11:09 Last Admin: 04/18/20 12:43 Dose: 0.5 mg Morphine Sulfate (Morphine) 4 mg IVPUSH ONETIME ONE Stop: 04/18/20 07:30 Last Admin: 04/18/20 07:57 Dose: 4 mg Morphine Sulfate (Morphine) 4 mg IVPUSH ONETIME ONE Stop: 04/18/20 09:36 Last Admin: 04/18/20 09:55 Dose: 4 mg Ondansetron HCl (Zofran) 4 mg IVPUSH ONETIME ONE Stop: 04/18/20 07:30 Last Admin: 04/18/20 07:57 Dose: 4 mg Sodium Chloride (Saline Flush) 2.5 ml FLUSH ASDIRECTED PRN PRN Reason: Keep Vein Open Last Admin: 04/18/20 07:58 Dose: 2.5 ml
[2020-04-19] MEDS: Pantoprazole 40 MG in Sodium Chloride 0.9% 10 ML IV SCH (11:46)
[2020-04-19 12:55] VITALS: BP 110/59; PULSE 61
== END 2020-04-19 14:50 | disposition home or self-care (01) ==
LOC: MW.ED 07:08 → MW.MS 10:23
PROVIDERS: ADMIT Internal Medicine; ATTEND Internal Medicine
DX: K85.90 Acute pancreatitis without necrosis or infection, unspecified (principal); K21.9 Gastro-esophageal reflux disease without esophagitis; E66.9 Obesity, unspecified; Z90.49 Acquired absence of other specified parts of digestive tract; Z68.41 Body mass index [BMI] 40.0-44.9, adult
CPT/HCPCS: 36415; 74177; 74183; 80053; 81001; 83690; 83735; 85025; 87338; 96361; 96374; 96375; 96376; 99285; A9270; A9577; C9113; J1170; J1885; J2060; J2270; J2405; J7030; J7050; Q9967; S0028; 99283; G0378; J3490

== ENCOUNTER 2022-11-30 10:15 | Emergency (ER) | payer BC ==
[2022-11-30] MEDS ORDERED: Sodium Chloride 0.9% 10 ML Syringe FLUSH PRN (11:00)
[2022-11-30] MEDS ORDERED: Sodium Chloride 0.9% 2.5 ML Syringe FLUSH PRN (11:00)
[2022-11-30] MEDS ORDERED: Sodium Chloride 0.9% 1,000 ML IV STA (11:11)
[2022-11-30 12:09] LABS: CARBON DIOXIDE,CO2 28.2 mmol/L (21.0-32.0); POTASSIUM,K 4.2 mmol/L (3.5-5.1)
[2022-11-30 12:57] VITALS: BP 136/80; PULSE 60
== END 2022-11-30 12:58 | disposition home or self-care (01) ==
LOC: MW.ED 10:15
DX: U07.1 COVID-19 (principal); R55 Syncope and collapse; Z28.310 Unvaccinated for COVID-19; Z79.899 Other long term (current) drug therapy; Z90.49 Acquired absence of other specified parts of digestive tract; Z90.710 Acquired absence of both cervix and uterus
CPT/HCPCS: 36415; 80053; 81003; 84443; 85025; 93005; 96360; 99284; J3490; J7030; 0241U